=== PATIENT | male | born 1930 | race Caucasian/White ===

== ENCOUNTER 2017-08-05 12:18 | Inpatient (IN) | payer MEDICARE, OTHER ==
[2017-08-05] MEDS ORDERED: Sodium Chloride 0.9% 10 ML Syringe FLUSH PRN (12:43)
[2017-08-05] MEDS ORDERED: Sodium Chloride 0.9% 500 ML IV ONE (12:47)
[2017-08-05] MEDS ORDERED: Sodium Chloride 0.9% 1,000 ML IV SCH (13:00)
--- NOTE | 2017-08-05 13:00 | EDM.PDOC ---
ED HPI GENERAL MEDICAL PROBLEM - General Chief Complaint: General Stated Complaint: [facility] Time Seen by Provider: 08/05/17 12:20 Source of Information: Reports: Patient, EMS History Limitations: Reports: No Limitations - History of Present Illness INITIAL COMMENTS - FREE TEXT/NARRATIVE: 87-year-old male presents via [facility] for evaluation treatment of generalized weakness. Patient had a left inguinal hernia repair done yesterday at [facility] in [place]. He was discharged home yesterday. Reports that they live in [place], [place]. They're in route home. They stayed last night in [place]. After leaving the hospital yesterday he was able to ambulate with a walker. Today he has been unable to ambulate at all due to his weakness. No chest pain or shortness of breath. He did have some dry heaves last night but no vomiting. No dizziness, lightheadedness or syncope. Patient is a type II diabetic. Most recent blood sugar was 199 at home. Patient was given a 300 bolus by [facility]. 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 History of heart failure and diabetes. Patient is a DNR, DNI. Incisional Pain Score (Numeric/FACES): 10 - Related Data Allergies Allergy/AdvReac Type Severity Reaction Status Date / Time hay fever Allergy Cannot Uncoded 08/05/17 16:49 Remember Home Meds: Home Meds Acetaminophen/HYDROcodone [[place] 325-5 MG] 1 - 2 tab PO Q4HR PRN 08/05/17 [ History] Albuterol [Proventil Neb Soln] 2.5 mg NEB QID 08/05/17 [History] Aspirin 325 mg PO DAILY 08/05/17 [History] Docusate Sodium 100 mg PO BID 08/05/17 [History] Furosemide 40 mg PO DAILY 08/05/17 [History] Levothyroxine [Synthroid] 50 mcg PO DAILY 08/05/17 [History] Nystatin 1 dose TOP DAILY 08/05/17 [History] Simvastatin [Zocor] 20 mg PO BEDTIME 08/05/17 [History] Tamsulosin [Flomax] 0.8 mg PO DAILY 08/05/17 [History] glipiZIDE [Glipizide Xl] 2.5 mg PO DAILY 08/05/17 [History] metFORMIN [Glucophage XR] 500 mg PO BID 08/05/17 [History] Furosemide [Lasix] 20 mg PO DAILY 5 Days #5 tablet 08/07/17 [Rx] ED ROS GENERAL - Review of Systems Review Of Systems: See Below Constitutional: Reports: Weakness. Denies: Fever, Chills Respiratory: Denies: Shortness of Breath Cardiovascular: Denies: Chest Pain GI/Abdominal: Reports: Nausea (dry heaves). Denies: Abdominal Pain, Vomiting : Denies: Dysuria Skin: Reports: Wound (left inguinal hernia repair scar; no overlying erythema, minimal swelling, no obvious infection). Denies: Erythema Neurological: Denies: Syncope ED EXAM, GENERAL - Physical Exam Exam: See Below Exam Limited By: No Limitations General Appearance: Alert, WD/WN, No Apparent Distress Eye Exam: Bilateral Eye: Normal Inspection Ears: Normal External Exam Nose: Normal Inspection Throat/Mouth: Normal Inspection, Normal Voice, No Airway Compromise Neck: Normal Inspection Respiratory/Chest: No Respiratory Distress, Lungs Clear, Normal Breath Sounds Cardiovascular: Normal Peripheral Pulses, Regular Rate, Rhythm, No Murmur, Other (2+ pitting edema bilerally) GI/Abdominal: Normal Bowel Sounds, Soft, Tender (generalized). No: Distended ( left inguinal hernia repair scar; closed with dermabond, no swelling, erythema or pus to the area), Rebound Neurological: Alert, Oriented, Normal Cognition Psychiatric: Normal Affect, Normal Mood Skin Exam: Warm, Dry, Normal Color EKG INTERPRETATION EKG Date: 08/05/17 Time: 13:00 Rhythm: NSR Rate (Beats/Min): 109 [place]: Normal P-Wave: Present QRS: Normal ST-T: Normal QT: Prolonged EKG Interpretation Comments: Sinus tachycardia at 109 bpm. Decreased voltage in the limb leads. No signs of ischemia. Q waves in III, AVF - old inferior wall Mi. QT midely prolonged. T wace inversion in V5 and V6 and T wave flattending in I and AVL. Occassional PVC. Poor 'R" wave progression. Reviewed by myself and Dr. Neff . Course - Vital Signs Last Recorded V/S: Last Vital Signs Temp 36.8 C 08/07/17 19:50 Pulse 99 08/07/17 19:50 Resp 14 08/07/17 19:50 BP 132/73 08/07/17 19:50 Pulse Ox 94 L 08/07/17 19:50 - Orders/Labs/Meds Orders: Medication Orders Acetaminophen (Tylenol) 650 mg PO Q4H PRN PRN Reason: Pain (Mild 1-3)/fever Hydrocodone Bitart/Acetaminophen ([place] 325-5 Mg) 1 tab PO Q4H PRN PRN Reason: Pain (moderate 4-6) Hydrocodone Bitart/Acetaminophen ([place] 325-5 Mg) 2 tab PO Q4H PRN PRN Reason: Pain (moderate 4-6) Albuterol/Ipratropium (Duoneb 3.0-0.5 Mg/3 Ml) 3 ml NEB Q4H PRN PRN Reason: Shortness Of Breath/wheezing Aspirin (Ecotrin) 325 mg PO DAILY [facility] Last Admin: 08/07/17 10:26 Dose: 325 mg Admin: 08/06/17 09:49 Dose: 325 mg Docusate Sodium (Colace) 100 mg PO BID PRN PRN Reason: Constipation Last Admin: 08/06/17 22:10 Dose: 100 mg Enoxaparin Sodium (Lovenox) 40 mg SUBCUT DAILY [facility] Last Admin: 08/07/17 10:24 Dose: 40 mg Admin: 08/06/17 09:54 Dose: 40 mg Furosemide (Lasix) 40 mg PO DAILY [facility] Last Admin: 08/07/17 10:25 Dose: 40 mg Levothyroxine Sodium (Synthroid) 50 mcg PO DAILY [facility] Last Admin: 08/07/17 10:25 Dose: 50 mcg Admin: 08/06/17 09:52 Dose: 50 mcg Metformin HCl (Glucophage) 500 mg PO BID [facility] Last Admin: 08/07/17 20:05 Dose: 500 mg Admin: 08/07/17 10:26 Dose: 500 mg Admin: 08/06/17 21:03 Dose: 500 mg Admin: 08/06/17 09:49 Dose: 500 mg Admin: 08/05/17 20:41 Dose: 500 mg Nystatin (Nystop) 0 gm TOP DAILY [facility] Last Admin: 08/07/17 10:33 Dose: 1 dose Admin: 08/06/17 09:58 Dose: 1 dose Ondansetron HCl (Zofran Odt) 4 mg PO Q6H PRN PRN Reason: nausea, able to take PO Ondansetron HCl (Zofran) 4 mg IV Q6H PRN PRN Reason: Nausea/Vomiting Polyethylene Glycol (Miralax) 17 gm PO DAILY PRN PRN Reason: Constipation Last Admin: 08/06/17 09:53 Dose: 17 gm Simvastatin (Zocor) 20 mg PO BEDTIME [facility]AR[facility] Last Admin: 08/07/17 20:05 Dose: 20 mg Admin: 08/06/17 21:03 Dose: 20 mg Admin: 08/05/17 20:42 Dose: 20 mg Sodium Chloride (Saline Flush) 10 ml FLUSH ASDIRECTED PRN PRN Reason: Keep Vein Open Tamsulosin HCl (Flomax) 0.4 mg PO DAILY [facility] Last Admin: 08/07/17 10:26 Dose: 0.4 mg Admin: 08/06/17 09:52 Dose: 0.4 mg Temazepam (Restoril) 7.5 mg PO BEDTIME PRN PRN Reason: Sleep Labs: Laboratory Tests 08/05/17 08/05/17 08/05/17 Range/Units 12:55 12:58 12:58 WBC 11.75 H (4.23-9.07) K/mm3 RBC 4.95 (4.63-6.08) M/mm3 Hgb 14.5 (13.7-17.5) gm/L Hct 43.8 (40.1-51.0) % MCV 88.5 (79.0-92.2) fl MCH 29.3 (25.7-32.2) pg MCHC 33.1 (32.2-35.5) g/dl RDW Std Deviation 47.9 H (35.1-43.9) fL Plt Count 188 (163-337) K/mm3 MPV 10.4 (9.4-12.3) fl Neutrophils % (Manual) 77 H (40-60) % Band Neutrophils % 1 (0-10) % Lymphocytes % (Manual) 12 L (20-40) % Atypical Lymphs % 0 % Monocytes % (Manual) 9 (2-10) % Eosinophils % (Manual) 1 (0.8-7.0) % Basophils % (Manual) 0 L (0.2-1.2) Platelet Estimate Adequate RBC Morph Comment Not Reportable Sodium 140 (136-145) mEq/L Potassium 4.2 (3.5-5.1) mEq/L Chloride 104 (98-107) mEq/L Carbon Dioxide 26 (21-32) mEq/L Anion Gap 14.2 (5-15) BUN 35 H (7-18) mg/dL Creatinine 1.5 H (0.7-1.3) mg/dL Est Cr Clr Drug Dosing 35.56 mL/min Estimated GFR (MDRD) 44 (>60) mL/min BUN/Creatinine Ratio 23.3 H (14-18) Glucose 124 H (83-115) mg/dL Calcium 9.2 (8.5-10.1) mg/dL Total Bilirubin 1.2 H (0.2-1.0) mg/dL AST 21 (15-37) U/L ALT 24 (16-63) U/L Alkaline Phosphatase 74 (46-116) U/L CK-MB (CK-2) 1.7 (0-3.6) ng/ml Troponin I 0.271 H* (0.00-0.056) ng/mL NT-Pro-B Natriuret Pep 6837 H (0-450) pg/mL Total Protein 6.9 (6.4-8.2) g/dl Albumin 3.1 L (3.4-5.0) g/dl Globulin 3.8 gm/dL Albumin/Globulin Ratio 0.8 L (1-2) Lipase 79 (73-393) U/L Urine Color (Yellow) Urine Appearance (Clear) Urine pH (5.0-8.0) Ur Specific [place] (1.005-1.030) Urine Protein (Negative) Urine Glucose (UA) (Negative) Urine Ketones (Negative) Urine Occult Blood (Negative) Urine Nitrite (Negative) Urine Bilirubin (Negative) Urine Urobilinogen (0.2-1.0) Ur Leukocyte Esterase (Negative) Urine RBC (0-5) /hpf Urine WBC (0-5) /hpf Ur Epithelial Cells (0-5) /hpf Urine Bacteria (FEW) /hpf Hyaline Casts (0-5) /lpf Urine Mucus (FEW) /hpf 08/05/17 Range/Units 13:45 WBC (4.23-9.07) K/mm3 RBC (4.63-6.08) M/mm3 Hgb (13.7-17.5) gm/L Hct (40.1-51.0) % MCV (79.0-92.2) fl MCH (25.7-32.2) pg MCHC (32.2-35.5) g/dl RDW Std Deviation (35.1-43.9) fL Plt Count (163-337) K/mm3 MPV (9.4-12.3) fl Neutrophils % (Manual) (40-60) % Band Neutrophils % (0-10) % Lymphocytes % (Manual) (20-40) % Atypical Lymphs % % Monocytes % (Manual) (2-10) % Eosinophils % (Manual) (0.8-7.0) % Basophils % (Manual) (0.2-1.2) Platelet Estimate RBC Morph Comment Sodium (136-145) mEq/L Potassium (3.5-5.1) mEq/L Chloride (98-107) mEq/L Carbon Dioxide (21-32) mEq/L Anion Gap (5-15) BUN (7-18) mg/dL Creatinine (0.7-1.3) mg/dL Est Cr Clr Drug Dosing mL/min Estimated GFR (MDRD) (>60) mL/min BUN/Creatinine Ratio (14-18) Glucose (83-115) mg/dL Calcium (8.5-10.1) mg/dL Total Bilirubin (0.2-1.0) mg/dL AST (15-37) U/L ALT (16-63) U/L Alkaline Phosphatase (46-116) U/L CK-MB (CK-2) (0-3.6) ng/ml Troponin I (0.00-0.056) ng/mL NT-Pro-B Natriuret Pep (0-450) pg/mL Total Protein (6.4-8.2) g/dl Albumin (3.4-5.0) g/dl Globulin gm/dL Albumin/Globulin Ratio (1-2) Lipase (73-393) U/L Urine Color Yellow (Yellow) Urine Appearance Clear (Clear) Urine pH 5.5 (5.0-8.0) Ur Specific [place] 1.020 (1.005-1.030) Urine Protein 1+ H (Negative) Urine Glucose (UA) Negative (Negative) Urine Ketones Negative (Negative) Urine Occult Blood Negative (Negative) Urine Nitrite Negative (Negative) Urine Bilirubin Negative (Negative) Urine Urobilinogen 0.2 (0.2-1.0) Ur Leukocyte Esterase Negative (Negative) Urine RBC 0-5 (0-5) /hpf Urine WBC 0-5 (0-5) /hpf Ur Epithelial Cells 0-5 (0-5) /hpf Urine Bacteria Rare (FEW) /hpf Hyaline Casts 0-5 (0-5) /lpf Urine Mucus Not seen (FEW) /hpf Meds: Medications Generic Name Dose Route Start Last Admin Trade Name Freq PRN Reason Stop Dose Admin Acetaminophen 650 mg 08/05/17 16:37 Tylenol PO Q4H PRN Pain (Mild 1-3)/fever Hydrocodone Bitart/Acetaminophen 1 tab 08/05/17 16:37 [place] 325-5 Mg PO Q4H PRN Pain (moderate 4-6) Hydrocodone Bitart/Acetaminophen 2 tab 08/05/17 16:37 [place] 325-5 Mg PO Q4H PRN Pain (moderate 4-6) Albuterol/Ipratropium 3 ml 08/05/17 16:37 Duoneb 3.0-0.5 Mg/3 Ml NEB Q4H PRN Shortness Of Breath/wheezing Aspirin 325 mg 08/06/17 09:00 08/07/17 10:26 Ecotrin PO 325 mg DAILY [facility] Administration Docusate Sodium 100 mg 08/05/17 16:37 08/06/17 22:10 Colace PO 100 mg BID PRN Administration Constipation Enoxaparin Sodium 40 mg 08/06/17 09:00 08/07/17 10:24 Lovenox SUBCUT 40 mg DAILY [facility] Administration Furosemide 40 mg 08/07/17 09:00 08/07/17 10:25 Lasix PO 40 mg DAILY [facility] Administration Levothyroxine Sodium 50 mcg 08/06/17 09:00 08/07/17 10:25 Synthroid PO 50 mcg DAILY [facility] Administration Metformin HCl 500 mg 08/05/17 21:00 08/07/17 20:05 Glucophage PO 500 mg BID [facility] Administration Nystatin 0 gm 08/06/17 09:00 08/07/17 10:33 Nystop TOP 1 dose DAILY [facility] Administration Ondansetron HCl 4 mg 08/05/17 16:37 Zofran Odt PO Q6H PRN nausea, able to take PO Ondansetron HCl 4 mg 08/05/17 16:37 Zofran IV Q6H PRN Nausea/Vomiting Polyethylene Glycol 17 gm 08/05/17 16:37 08/06/17 09:53 Miralax PO 17 gm DAILY PRN Administration Constipation Simvastatin 20 mg 08/05/17 21:00 08/07/17 20:05 Zocor PO 20 mg BEDTIME [facility] Administration Sodium Chloride 10 ml 08/05/17 12:43 Saline Flush FLUSH ASDIRECTED PRN Keep Vein Open Tamsulosin HCl 0.4 mg 08/06/17 09:00 08/07/17 10:26 Flomax PO 0.4 mg DAILY [facility] Administration Temazepam 7.5 mg 08/05/17 16:37 Restoril PO BEDTIME PRN Sleep Discontinued Medications Generic Name Dose Route Start Last Admin Trade Name Freq PRN Reason Stop Dose Admin Aspirin 324 mg 08/05/17 14:00 08/05/17 15:23 Aspirin PO 08/05/17 14:01 324 mg ONETIME ONE Administration Enalapril Maleate 2.5 mg 08/05/17 21:00 08/06/17 21:04 Vasotec PO 2.5 mg BID [facility] Administration Enoxaparin Sodium 40 mg 08/05/17 14:00 08/05/17 15:23 Lovenox SUBCUT 08/05/17 14:01 40 mg ONETIME ONE Administration Enoxaparin Sodium Confirm 08/05/17 15:32 08/05/17 15:32 Lovenox Administered 08/05/17 15:33 Not Given Dose 40 mg .ROUTE .STK-MED ONE Furosemide 60 mg 08/05/17 14:00 08/05/17 15:00 Lasix IVPUSH 08/05/17 14:01 60 mg NOW ONE Administration Furosemide 40 mg 08/05/17 16:45 08/06/17 05:52 Lasix IVPUSH 40 mg Q12H [facility] Administration Sodium Chloride 500 mls @ 500 mls/hr 08/05/17 12:47 08/05/17 18:28 Normal Saline IV 08/05/17 13:46 Not Given ONETIME ONE Sodium Chloride 1,000 mls @ 100 mls/hr 08/05/17 13:00 Normal Saline IV ASDIRECTED [facility]ARIS Sodium Chloride 500 mls @ 999 mls/hr 08/06/17 11:08 08/06/17 11:22 Normal Saline IV 08/06/17 11:38 999 mls/hr .BOLUS ONE Administration Sodium Chloride 500 mls @ 999 mls/hr 08/06/17 19:43 08/06/17 21:06 Normal Saline IV 08/06/17 20:14 999 mls/hr ASDIRECTED DAMARIS Administration Magnesium Hydroxide 30 ml 08/07/17 11:00 08/07/17 11:27 Milk Of Magnesia PO 08/07/17 11:01 30 ml ONETIME ONE Administration Morphine Sulfate 2 mg 08/05/17 16:37 Morphine IVPUSH 08/06/17 16:40 Q2H PRN Pain (severe 7-10) - Radiology Interpretation Free Text/Narrative:: chest xray 1 view impression per Vrad: cardiomegaly. atelectasis vs. less likely infiltrate at the left lung base xray of the abdomen 1 view impression per VraD: hyperlucent left flank stripe. Clinical correlation to exclude acute pathology suggested. Should further evaluation be desired CT scanning would be of additional benefit. - Re-Assessments/Exams Free Text/Narrative Re-Assessment/Exam: 08/05/17 14:[address] Neff. Recommended giving lasix 60mg IV, lovenox 40 units subq and aspirin 325mg We are attempting to get records from outside facilities. Elevated trop concerning for NSTEMI. Other possibilities include trop leak or demand ischemia. Of note the patient had recent surgery, possibly was fluid overloaded causing an elevated trop. Difficult to determine given no records here. Patient and family were updated on labs, ekg and imaging. 08/05/17 16:00 I discussed the labs, ekg and imaging results with the patient and his family. I informed them of the elevated trop. Difficult to determine if he had a NSTEMI vs. trop leak. Offered transfer to [place] for cardiology consult and possibly angiogram. Patient reports he is a DNR/DNI and does not want to return to [place] for an angiogram. Patient and family have elevted to stay at our hospital for care. They were informed we are unable to preform an cardic angiogram. They agree to admission here for trending trops and for further services such as PT, OT. Case was discussed with Dr. Sauceda hospitalist carton stapler. He agrees to the admission. Will come and see the patient in the ER and plan on admission. Departure - Departure Time of Disposition: 16:05 Disposition: Admitted As Inpatient 64 Condition: Serious Clinical Impression: Elevated troponin, S/P hernia repair, Generalized weakness CHF exacerbation Qualifiers: Congestive heart failure type: unspecified congestive heart failure type Qualified Code(s): I50.9 - Heart failure, unspecified - Discharge Information
[2017-08-05] MEDS ORDERED: Furosemide 40 MG/4 ML VIAL IVPUSH ONE (14:00)
[2017-08-05] MEDS ORDERED: Enoxaparin 40 MG/0.4 ML Syringe SUBCUT ONE (14:00)
[2017-08-05] MEDS ORDERED: Aspirin 81 MG Tab.Chew PO ONE (14:00)
[2017-08-05] MEDS ORDERED: Enoxaparin 40 MG/0.4 ML Syringe ONE (15:32)
[2017-08-05] MEDS ORDERED: Ondansetron 4 MG/2 ML SDV IV PRN (16:37)
[2017-08-05] MEDS ORDERED: Docusate Sodium 100 MG Cap PO PRN (16:37)
[2017-08-05] MEDS ORDERED: Morphine 2 MG/ML Syringe IVPUSH PRN (16:37)
[2017-08-05] MEDS ORDERED: Acetaminophen 325 MG Tab PO PRN (16:37)
[2017-08-05] MEDS ORDERED: Polyethylene Glycol 3350 Powder 17 GM Packet PO PRN (16:37)
[2017-08-05] MEDS ORDERED: Albuterol/Ipratropium 3.0-0.5 MG/3 ML Neb Soln NEB PRN (16:37)
[2017-08-05] MEDS ORDERED: Acetaminophen/HYDROcodone 325-5 MG Tab PO PRN ×2 (16:37)
[2017-08-05] MEDS ORDERED: Ondansetron 4 MG Tab.DIS PO PRN (16:37)
[2017-08-05] MEDS ORDERED: Temazepam 7.5 MG Cap PO PRN (16:37)
--- NOTE | 2017-08-05 17:13 | PCM.HP ---
H&P History of Present Illness - General Date of Service: 08/05/17 Admit Problem/Dx: Admission Diagnosis/Problem Admission Diagnosis/Problem Heart failure Generalized weakness and malaise Source of Information: Family History Limitations: Reports: No Limitations - History of Present Illness Initial Comments - Free Text/Narative: Patient is an 87-year-old man with past medical history of diabetes mellitus type 2, hypertension, hyperlipidemia, hypothyroidism, benign prostatic hyperplasia, chronic congestive heart failure, who recently underwent a left inguinal hernia repair yesterday at [facility] in [place] and was discharged same day. He was brought into the emergency room this morning for evaluation of complaints of generalized weakness and malaise. Most of the history was obtained from the family at the bedside as patient was too weak to give any history. According to the family, patient was discharged immediately after surgery and drove all the way from [place] to [place] where they stopped for the night. He was said to have been restless, nauseous, and was unable to eat anything post surgery. They watched him overnight and when he was not getting better at this morning they decided to bring him to the emergency room for further evaluation and treatment. At the emergency room, laboratory investigations which were done revealed an elevated troponin level as well as an elevated BNP level. The emergency room provider discussed with the patient and family regarding the results and he indicated that he did not want any intervention regarding his heart as he is aware that he has heart failure. They insisted that they want to stay in this hospital and that they want patient to be strong enough so he can go home. His CODE STATUS is DNR/DNI. He denies any chest pain, shortness of breath, cough, fever or bleeding from the hernia repair site. He does complain of extreme weakness. He will be admitted for further evaluation and treatment. Incisional Pain Score (Numeric/FACES): 10 - Related Data Allergies/Adverse Reactions: Allergies Allergy/AdvReac Type Severity Reaction Status Date / Time hay fever Allergy Cannot Uncoded 08/05/17 16:49 Remember Home Medications: Home Meds Acetaminophen/HYDROcodone [Penryn 325-5 MG] 1 tab PO Q4HR PRN 08/05/17 [History] Albuterol [Proventil Neb Soln] 1 inh NEB QID 08/05/17 [History] Aspirin 325 mg PO DAILY 08/05/17 [History] Docusate Sodium 100 mg PO BID 08/05/17 [History] Furosemide [Furosemide] 40 mg PO DAILY 08/05/17 [History] Levothyroxine [Synthroid] 50 mcg PO DAILY 08/05/17 [History] Nystatin 1 dose TOP DAILY 08/05/17 [History] Simvastatin [Zocor] 20 mg PO BEDTIME 08/05/17 [History] Tamsulosin [Flomax] 0.4 mg PO DAILY 08/05/17 [History] glipiZIDE [Glipizide Xl] 2.5 mg PO DAILY 08/05/17 [History] metFORMIN [Glucophage XR] 500 mg PO BID 08/05/17 [History] Past Medical History Cardiovascular History: Reports: Heart Failure, High Cholesterol, Hypertension Genitourinary History: Reports: Prostate Disorder Other Genitourinary History: bladder control Endocrine/Metabolic History: Reports: Diabetes, Type II - Past Surgical History GI Surgical History: Reports: Hernia, Abdominal Social & Family History - Tobacco Use Smoking Status *Q: Former Smoker Used Tobacco, but Quit: Yes Month Tobacco Last Used: see above - Caffeine Use Caffeine Use: Reports: Coffee - Recreational Drug Use Recreational Drug Use: No H&P Review of Systems - Review of Systems: Review Of Systems: See Below General: Reports: Malaise, Weakness, Decreased Appetite HEENT: Reports: No Symptoms Pulmonary: Reports: No Symptoms Cardiovascular: Reports: Dyspnea on Exertion, Orthopnea Gastrointestinal: Reports: No Symptoms Genitourinary: Reports: No Symptoms Musculoskeletal: Reports: No Symptoms Skin: Reports: No Symptoms Psychiatric: Reports: No Symptoms Neurological: Reports: No Symptoms Hematologic/Lymphatic: Reports: No Symptoms Immunologic: Reports: No Symptoms Exam - Exam Exam: See Below - Vital Signs Vital Signs: Last Vital Signs Temp 99.3 F 08/05/17 16:40 Pulse 103 H 08/05/17 16:40 Resp 14 08/05/17 16:40 BP 135/97 H 08/05/17 16:40 Pulse Ox 93 L 08/05/17 16:40 Weight: 84.005 kg - Exam Quality Assessment: Supplemental Oxygen General: Alert, Oriented, Cooperative HEENT: PERRLA, Hearing Intact, Mucosa Moist & [place], Nares Patent, Normal Nasal Septum, Posterior Pharynx Clear, Conjunctiva Clear, EOMI, EACs Clear, TMs Clear Neck: Supple, Trachea Midline, 2 Lungs: Clear to Auscultation, Normal Respiratory Effort, Rales Cardiovascular: Regular Rate, Regular Rhythm GI/Abdominal Exam: Normal Bowel Sounds, Soft, Non-Tender, No Organomegaly, No Distention, No Abnormal Bruit, No Mass, Pelvis Stable (Male) Exam: Other (Hernia repair site noted to have clean dressing.) Rectal (Males) Exam: Deferred Back Exam: Normal Inspection Extremities: Normal Inspection, Normal Range of Motion, Non-Tender, No Pedal Edema, Normal Capillary Refill Peripheral Pulses: 2+: Carotid (L), Carotid (R), Brachial (L), Brachial (R), Radial (L), Radial (R), Femoral (L), Femoral (R), Popliteal (L), Popliteal (R), Posterior Tibial (L), Posterior Tibial (R), Dorsalis Pedis (L), Dorsalis Pedis ( R) Skin: Warm, Dry, Intact Neurological: Cranial Nerves Intact, Reflexes Equal Bilateral Neuro Extensive - Mental Status: Alert, Oriented x3, Normal Mood/Affect, Normal Cognition Neuro Extensive - Motor, Sensory, Reflexes: CN II-XII Intact DTR: 2+: Bicep (L), Bicep (R), Tricep (L), Tricep (R), Patella (L), Patella (R) , Achilles (L), Achilles (R) Psychiatric: Alert, Normal Affect, Normal Mood - Patient Data Result Diagrams: 08/05/17 12:55 08/05/17 12:58 *Q Meaningful Use (ADM) - VTE *Q VTE Criteria *Q: - Stroke *Q Stroke Criteria *Q: - AMI *Q AMI Criteria *Q: - Problem List (1) CHF exacerbation SNOMED Code(s): 80424286 ICD Code: I50.9 - HEART FAILURE, UNSPECIFIED Status: Acute Priority: High Current Visit: Yes Qualifiers: Congestive heart failure type: unspecified congestive heart failure type Qualified Code(s): I50.9 - Heart failure, unspecified (2) Elevated troponin SNOMED Code(s): 295371050 ICD Code: R74.8 - ABNORMAL LEVELS OF OTHER SERUM ENZYMES Status: Acute Priority: High Current Visit: Yes (3) Generalized weakness SNOMED Code(s): 51897897 ICD Code: R53.1 - WEAKNESS Status: Acute Priority: High Current Visit: Yes (4) S/P hernia repair SNOMED Code(s): 28208876736293 ICD Code: Z98.890 - OTHER SPECIFIED POSTPROCEDURAL STATES; Z87.19 - PERSONAL HISTORY OF OTHER DISEASES OF THE DIGESTIVE SYSTEM Status: Acute Current Visit: Yes Problem Details: Postop day #1 (5) DM2 (diabetes mellitus, type 2) SNOMED Code(s): 89077615 ICD Code: E11.9 - TYPE 2 DIABETES MELLITUS WITHOUT COMPLICATIONS Status: Chronic Current Visit: Yes Qualifiers: Diabetes mellitus complication status: with unspecified complications Diabetes mellitus intermission coordinator insulin use: without intermission coordinator use Qualified Code( s): E11.8 - Type 2 diabetes mellitus with unspecified complications (6) Hypothyroidism SNOMED Code(s): 29025279 ICD Code: E03.9 - HYPOTHYROIDISM, UNSPECIFIED Status: Chronic Current Visit: Yes Qualifiers: Hypothyroidism type: acquired Qualified Code(s): E03.9 - Hypothyroidism, unspecified (7) BPH (benign prostatic hyperplasia) SNOMED Code(s): 246557839 ICD Code: N40.0 - BENIGN PROSTATIC HYPERPLASIA WITHOUT LOWER URINRY TRACT SYMP Status: Chronic Current Visit: Yes Qualifiers: Lower urinary tract symptom presence: unspecified whether lower urinary tract symptoms present Qualified Code(s): N40.0 - Benign prostatic hyperplasia without lower urinary tract symptoms Problem List Initiated/Reviewed/Updated: Yes Orders Last 24hrs: Active Orders 24 hr Category Date Time Status Patient Status [ADT] Routine ADT 08/05/17 16:05 Active Antiembolic Devices [RC] PER UNIT ROUTINE Care 08/05/17 16:42 Ordered Blood Glucose Check, Bedside [RC] QIDACANDBED Care 08/05/17 16:37 Ordered Cardiac Education [RC] Click to Edit Care 08/05/17 16:46 Ordered EKG Documentation Completion [RC] ROUTINE Care 08/05/17 16:37 Ordered Oxygen Therapy [RC] PRN Care 08/05/17 16:37 Ordered RT Aerosol Therapy [RC] ASDIRECTED Care 08/05/17 16:42 Ordered Up With Assistance [RC] ASDIRECTED Care 08/05/17 16:37 Ordered VTE/DVT Education [RC] PER UNIT ROUTINE Care 08/05/17 16:37 Ordered Vital Signs [RC] Q4H Care 08/05/17 16:37 Ordered OT Evaluation and Treatment [CONS] Routine Cons 08/05/17 16:37 Ordered PT Evaluation and Treatment [CONS] Routine Cons 08/05/17 16:37 Ordered Consistent Carbohydrate Diet [DIET] Diet 08/05/17 Dinner Ordered Echo Comp wo Cont [US] Routine Exams 08/07/17 08:00 Ordered BASIC METABOLIC PANEL,BMP [CHEM] AM Lab 08/06/17 05:11 Ordered CBC WITH AUTO DIFF [HEME] AM Lab 08/06/17 05:11 Ordered PRO B-TYPE NATRIUR PEPT,BNPPRO [CHEM] Routine Lab 08/06/17 05:11 Ordered TROPONIN I [CHEM] Q12H Lab 08/05/17 16:37 Ordered TROPONIN I [CHEM] Q12H Lab 08/06/17 04:37 Ordered TROPONIN I [CHEM] Q12H Lab 08/06/17 16:37 Ordered Acetaminophen [Tylenol] Med 08/05/17 16:37 Ordered 650 mg PO Q4H PRN Acetaminophen/HYDROcodone [Penryn 325-5 MG] Med 08/05/17 16:37 Ordered 1 tab PO Q4H PRN Acetaminophen/HYDROcodone [Penryn 325-5 MG] Med 08/05/17 16:37 Ordered 2 tab PO Q4H PRN Albuterol/Ipratropium [DuoNeb 3.0-0.5 MG/3 ML] Med 08/05/17 16:37 Ordered 3 ml NEB Q4H PRN Aspirin Med 08/06/17 09:00 Ordered 325 mg PO DAILY Docusate Sodium [Colace] Med 08/05/17 16:37 Ordered 100 mg PO BID PRN Enalapril [Vasotec] Med 08/05/17 21:00 Ordered 2.5 mg PO BID Enoxaparin [Lovenox] Med 08/06/17 09:00 Ordered 40 mg SUBCUT DAILY Furosemide [Lasix] Med 08/05/17 16:45 Ordered 40 mg IVPUSH Q12H Levothyroxine [Synthroid] Med 08/06/17 09:00 Ordered 50 mcg PO DAILY Morphine Med 08/05/17 16:37 Ordered 2 mg IVPUSH Q2H PRN Nystatin [Nystatin] Med 08/06/17 09:00 Ordered 1 dose TOP DAILY Ondansetron [Zofran ODT] Med 08/05/17 16:37 Ordered 4 mg PO Q6H PRN Ondansetron [Zofran] Med 08/05/17 16:37 Ordered 4 mg IV Q6H PRN Polyethylene Glycol 3350 [MiraLAX] Med 08/05/17 16:37 Ordered 17 gm PO DAILY PRN Simvastatin [Zocor] Med 08/05/17 21:00 Ordered 20 mg PO BEDTIME Tamsulosin [Flomax] Med 08/06/17 09:00 Ordered 0.4 mg PO DAILY Temazepam [Restoril] Med 08/05/17 16:37 Ordered 7.5 mg PO BEDTIME PRN metFORMIN Med 08/05/17 21:00 Ordered 500 mg PO BID Antiembolic Hose [OM.PC] Per Unit Routine Oth 08/05/17 16:39 Ordered CHF Questionnaire [COMM] Routine Oth 08/05/17 16:46 Ordered Resuscitation Status Routine Resus Stat 08/05/17 16:37 Ordered Medication Orders Acetaminophen (Tylenol) 650 mg PO Q4H PRN PRN Reason: Pain (Mild 1-3)/fever Hydrocodone Bitart/Acetaminophen (Penryn 325-5 Mg) 1 tab PO Q4H PRN PRN Reason: Pain (moderate 4-6) Hydrocodone Bitart/Acetaminophen (Penryn 325-5 Mg) 2 tab PO Q4H PRN PRN Reason: Pain (moderate 4-6) Albuterol/Ipratropium (Duoneb 3.0-0.5 Mg/3 Ml) 3 ml NEB Q4H PRN PRN Reason: Shortness Of Breath/wheezing Docusate Sodium (Colace) 100 mg PO BID PRN PRN Reason: Constipation Enalapril Maleate (Vasotec) 2.5 mg PO BID [facility] Enoxaparin Sodium (Lovenox) 40 mg SUBCUT DAILY [facility] Furosemide (Lasix) 40 mg IVPUSH Q12H [facility] Levothyroxine Sodium (Synthroid) 50 mcg PO DAILY [facility] Morphine Sulfate (Morphine) 2 mg IVPUSH Q2H PRN PRN Reason: Pain (severe 7-10) Stop: 08/06/17 16:40 Non-Formulary Medication (Aspirin) 325 mg PO DAILY [facility] Non-Formulary Medication (Metformin) 500 mg PO BID [facility] Non-Formulary Medication (Nystatin [Nystatin]) 1 dose TOP DAILY [facility] Ondansetron HCl (Zofran Odt) 4 mg PO Q6H PRN PRN Reason: nausea, able to take PO Ondansetron HCl (Zofran) 4 mg IV Q6H PRN PRN Reason: Nausea/Vomiting Polyethylene Glycol (Miralax) 17 gm PO DAILY PRN PRN Reason: Constipation Simvastatin (Zocor) 20 mg PO BEDTIME [facility] Sodium Chloride (Saline Flush) 10 ml FLUSH ASDIRECTED PRN PRN Reason: Keep Vein Open Tamsulosin HCl (Flomax) 0.4 mg PO DAILY [facility] Temazepam (Restoril) 7.5 mg PO BEDTIME PRN PRN Reason: Sleep Assessment/Plan Comment:: Assessment: 1. Status post left inguinal hernia repair. Postop Day #1. 2. Generalized weakness and malaise. 3. Elevated troponin possibly due to non-ST elevation [place]. 4. Acute exacerbation of chronic congestive heart failure. 5. Acute physical deconditioning. Plan: 1. Admit to [facility] for observation under telemetry monitoring. 2. Monitor serial troponin and EKG every 12 hours. 3. Complete echocardiogram on Monday. 4. Continue aspirin, statin. Will start CARLOZ inhibitor with enalapril 2.5 mg twice daily to hold for systolic blood pressure less than 100 mmHg. 5. IV Lasix 40 mg twice daily. 6. Physical therapy and outpatient therapy evaluation and treatment. 7. DVT prophylaxis with Lovenox. 8. Discharge planning.
[2017-08-05] MEDS: Furosemide 100 MG/10 ML SDV IVPUSH SCH (17:40)
[2017-08-05] MEDS: metFORMIN 500 MG Tab PO SCH (20:41)
[2017-08-05] MEDS: Simvastatin 20 MG Tab PO SCH (20:42)
[2017-08-06] MEDS: Furosemide 100 MG/10 ML SDV IVPUSH SCH (05:52)
[2017-08-06] MEDS: Aspirin 325 MG Tab.EC PO SCH (09:49)
[2017-08-06] MEDS: metFORMIN 500 MG Tab PO SCH ×2 (09:49→21:03)
[2017-08-06] MEDS: Levothyroxine 50 MCG Tab PO SCH (09:52)
[2017-08-06] MEDS: Tamsulosin 0.4 MG Cap.ER PO SCH (09:52)
[2017-08-06] MEDS: Enoxaparin 40 MG/0.4 ML Syringe SUBCUT SCH (09:54)
--- NOTE | 2017-08-06 09:54 | PCM.PN ---
- General Info Date of Service: 08/06/17 Admission Dx/Problem (Free Text): Admission Diagnosis/Problem Admission Diagnosis/Problem Heart failure Generalized weakness and malaise Subjective Update: 87-year-old man who underwent a left inguinal hernia repair postop day #2. He was seen and examined bedside with the nurse. Still complains of generalized weakness but denies any pain. He was started on Lasix as his proBNP was elevated. He has been diuresing well what vitals have been unstable. Functional Status: Reports: Pain Controlled, Tolerating Diet, Urinating. Denies : New Symptoms - Review of Systems General: Reports: Weakness HEENT: Reports: No Symptoms Pulmonary: Reports: No Symptoms Cardiovascular: Reports: No Symptoms Gastrointestinal: Reports: No Symptoms Genitourinary: Reports: No Symptoms Musculoskeletal: Reports: No Symptoms Skin: Reports: No Symptoms Neurological: Reports: No Symptoms Psychiatric: Reports: No Symptoms - Patient Data Vitals - Most Recent: Last Vital Signs Temp 98.2 F 08/06/17 04:21 Pulse 105 H 08/06/17 04:21 Resp 20 08/06/17 04:21 BP 120/64 08/06/17 04:21 Pulse Ox 92 L 08/06/17 04:21 Weight - Most Recent: 83.143 kg I&O - Last 24 Hours: Intake & Output 08/05/17 08/06/17 08/06/17 22:59 06:59 14:59 Intake Total 120 200 Output Total 200 Balance 120 0 Lab Results Last 24 Hours: Laboratory Results - last 24 hr 08/05/17 08/05/17 08/05/17 Range/Units 16:37 17:39 20:59 WBC (4.23-9.07) K/mm3 RBC (4.63-6.08) M/mm3 Hgb (13.7-17.5) gm/L Hct (40.1-51.0) % MCV (79.0-92.2) fl MCH (25.7-32.2) pg MCHC (32.2-35.5) g/dl RDW Std Deviation (35.1-43.9) fL Plt Count (163-337) K/mm3 MPV (9.4-12.3) fl Neut % (Auto) (34.0-67.9) % Lymph % (Auto) (21.8-53.1) % Pratt % (Auto) (5.3-12.2) % Eos % (Auto) (0.8-7.0) Baso % (Auto) (0.1-1.2) % Neut # (Auto) (1.78-5.38) K/mm3 Lymph # (Auto) (1.32-3.57) K/mm3 Pratt # (Auto) (0.30-0.82) K/mm3 Eos # (Auto) (0.04-0.54) K/mm3 Baso # (Auto) (0.01-0.08) K/mm3 Manual Slide Review Sodium (136-145) mEq/L Potassium (3.5-5.1) mEq/L Chloride (98-107) mEq/L Carbon Dioxide (21-32) mEq/L Anion Gap (5-15) BUN (7-18) mg/dL Creatinine (0.7-1.3) mg/dL Est Cr Clr Drug Dosing mL/min Estimated GFR (MDRD) (>60) mL/min BUN/Creatinine Ratio (14-18) Glucose (83-115) mg/dL POC Glucose 111 H 145 H (83-110) mg/dL Calcium (8.5-10.1) mg/dL Troponin I 0.229 H* (0.00-0.056) ng/mL NT-Pro-B Natriuret Pep (0-450) pg/mL 08/06/17 08/06/17 08/06/17 Range/Units 04:35 04:35 04:35 WBC 12.73 H (4.23-9.07) K/mm3 RBC 5.12 (4.63-6.08) M/mm3 Hgb 15.0 (13.7-17.5) gm/L Hct 44.9 (40.1-51.0) % MCV 87.7 (79.0-92.2) fl MCH 29.3 (25.7-32.2) pg MCHC 33.4 (32.2-35.5) g/dl RDW Std Deviation 47.2 H (35.1-43.9) fL Plt Count 199 (163-337) K/mm3 MPV 10.7 (9.4-12.3) fl Neut % (Auto) 82.1 H (34.0-67.9) % Lymph % (Auto) 9.7 L (21.8-53.1) % Pratt % (Auto) 7.4 (5.3-12.2) % Eos % (Auto) 0.4 L (0.8-7.0) Baso % (Auto) 0.2 (0.1-1.2) % Neut # (Auto) 10.44 H (1.78-5.38) K/mm3 Lymph # (Auto) 1.24 L (1.32-3.57) K/mm3 Pratt # (Auto) 0.94 H (0.30-0.82) K/mm3 Eos # (Auto) 0.05 (0.04-0.54) K/mm3 Baso # (Auto) 0.03 (0.01-0.08) K/mm3 Manual Slide Review Normal smear Sodium 138 (136-145) mEq/L Potassium 3.9 (3.5-5.1) mEq/L Chloride 102 (98-107) mEq/L Carbon Dioxide 29 (21-32) mEq/L Anion Gap 10.9 (5-15) BUN 40 H (7-18) mg/dL Creatinine 1.6 H (0.7-1.3) mg/dL Est Cr Clr Drug Dosing 33.34 mL/min Estimated GFR (MDRD) 41 (>60) mL/min BUN/Creatinine Ratio 25.0 H (14-18) Glucose 159 H (83-115) mg/dL POC Glucose (83-110) mg/dL Calcium 9.4 (8.5-10.1) mg/dL Troponin I 0.141 H* (0.00-0.056) ng/mL NT-Pro-B Natriuret Pep 3283 H (0-450) pg/mL 08/06/17 Range/Units 06:12 WBC (4.23-9.07) K/mm3 RBC (4.63-6.08) M/mm3 Hgb (13.7-17.5) gm/L Hct (40.1-51.0) % MCV (79.0-92.2) fl MCH (25.7-32.2) pg MCHC (32.2-35.5) g/dl RDW Std Deviation (35.1-43.9) fL Plt Count (163-337) K/mm3 MPV (9.4-12.3) fl Neut % (Auto) (34.0-67.9) % Lymph % (Auto) (21.8-53.1) % Pratt % (Auto) (5.3-12.2) % Eos % (Auto) (0.8-7.0) Baso % (Auto) (0.1-1.2) % Neut # (Auto) (1.78-5.38) K/mm3 Lymph # (Auto) (1.32-3.57) K/mm3 Pratt # (Auto) (0.30-0.82) K/mm3 Eos # (Auto) (0.04-0.54) K/mm3 Baso # (Auto) (0.01-0.08) K/mm3 Manual Slide Review Sodium (136-145) mEq/L Potassium (3.5-5.1) mEq/L Chloride (98-107) mEq/L Carbon Dioxide (21-32) mEq/L Anion Gap (5-15) BUN (7-18) mg/dL Creatinine (0.7-1.3) mg/dL Est Cr Clr Drug Dosing mL/min Estimated GFR (MDRD) (>60) mL/min BUN/Creatinine Ratio (14-18) Glucose (83-115) mg/dL POC Glucose 133 H (83-110) mg/dL Calcium (8.5-10.1) mg/dL Troponin I (0.00-0.056) ng/mL NT-Pro-B Natriuret Pep (0-450) pg/mL Med Orders - Current: Current Medications Acetaminophen (Tylenol) 650 mg PO Q4H PRN PRN Reason: Pain (Mild 1-3)/fever Hydrocodone Bitart/Acetaminophen ([place] 325-5 Mg) 1 tab PO Q4H PRN PRN Reason: Pain (moderate 4-6) Hydrocodone Bitart/Acetaminophen ([place] 325-5 Mg) 2 tab PO Q4H PRN PRN Reason: Pain (moderate 4-6) Albuterol/Ipratropium (Duoneb 3.0-0.5 Mg/3 Ml) 3 ml NEB Q4H PRN PRN Reason: Shortness Of Breath/wheezing Aspirin (Ecotrin) 325 mg PO DAILY [facility] Docusate Sodium (Colace) 100 mg PO BID PRN PRN Reason: Constipation Enalapril Maleate (Vasotec) 2.5 mg PO BID [facility] Last Admin: 08/05/17 20:42 Dose: 2.5 mg Enoxaparin Sodium (Lovenox) 40 mg SUBCUT DAILY [facility] Furosemide (Lasix) 40 mg IVPUSH Q12H [facility] Last Admin: 08/06/17 05:52 Dose: 40 mg Levothyroxine Sodium (Synthroid) 50 mcg PO DAILY [facility] Metformin HCl (Glucophage) 500 mg PO BID [facility] Last Admin: 08/05/17 20:41 Dose: 500 mg Morphine Sulfate (Morphine) 2 mg IVPUSH Q2H PRN PRN Reason: Pain (severe 7-10) Stop: 08/06/17 16:40 Nystatin (Nystop) 0 gm TOP DAILY [facility] Ondansetron HCl (Zofran Odt) 4 mg PO Q6H PRN PRN Reason: nausea, able to take PO Ondansetron HCl (Zofran) 4 mg IV Q6H PRN PRN Reason: Nausea/Vomiting Polyethylene Glycol (Miralax) 17 gm PO DAILY PRN PRN Reason: Constipation Simvastatin (Zocor) 20 mg PO BEDTIME [facility] Last Admin: 08/05/17 20:42 Dose: 20 mg Sodium Chloride (Saline Flush) 10 ml FLUSH ASDIRECTED PRN PRN Reason: Keep Vein Open Tamsulosin HCl (Flomax) 0.4 mg PO DAILY [facility] Temazepam (Restoril) 7.5 mg PO BEDTIME PRN PRN Reason: Sleep Discontinued Medications Aspirin (Aspirin) 324 mg PO ONETIME ONE Stop: 08/05/17 14:01 Last Admin: 08/05/17 15:23 Dose: 324 mg Enoxaparin Sodium (Lovenox) 40 mg SUBCUT ONETIME ONE Stop: 08/05/17 14:01 Last Admin: 08/05/17 15:23 Dose: 40 mg Enoxaparin Sodium (Lovenox) Confirm Administered Dose 40 mg .ROUTE .STK-MED ONE Stop: 08/05/17 15:33 Last Admin: 08/05/17 15:32 Dose: Not Given Furosemide (Lasix) 60 mg IVPUSH NOW ONE Stop: 08/05/17 14:01 Last Admin: 08/05/17 15:00 Dose: 60 mg Sodium Chloride (Normal Saline) 500 mls @ 500 mls/hr IV ONETIME ONE Stop: 08/05/17 13:46 Last Admin: 08/05/17 18:28 Dose: Not Given Sodium Chloride (Normal Saline) 1,000 mls @ 100 mls/hr IV ASDIRECTED DAMARIS - Exam General: Alert, Oriented, Cooperative, Lethargic HEENT: Pupils Equal, Pupils Reactive, EOMI, Mucous Membr. Moist/[place] Neck: Supple Lungs: Clear to Auscultation, Normal Respiratory Effort Cardiovascular: Regular Rate, Regular Rhythm GI/Abdominal Exam: Normal Bowel Sounds, Soft, Non-Tender, No Organomegaly, No Distention, No Abnormal Bruit, No Mass, Pelvis Stable (Male) Exam: Deferred Back Exam: Normal Inspection Extremities: Normal Inspection, Normal Range of Motion, Non-Tender, No Pedal Edema, Normal Capillary Refill Peripheral Pulses: 2+: Carotid (L), Carotid (R), Brachial (L), Brachial (R), Radial (L), Radial (R), Femoral (L), Femoral (R), Popliteal (L), Popliteal (R), Posterior Tibial (L), Posterior Tibial (R), Dorsalis Pedis (L), Dorsalis Pedis ( R) Skin: Warm, Dry, Intact Wound/Incisions: Healing Well Neurological: No New Focal Deficit Psy/Mental Status: Alert, Normal Affect, Normal Mood - Problem List & Annotations (1) CHF exacerbation SNOMED Code(s): 82805564 Code(s): I50.9 - HEART FAILURE, UNSPECIFIED Status: Acute Priority: High Current Visit: Yes Qualifiers: Congestive heart failure type: unspecified congestive heart failure type Qualified Code(s): I50.9 - Heart failure, unspecified (2) Elevated troponin SNOMED Code(s): 086548795 Code(s): R74.8 - ABNORMAL LEVELS OF OTHER SERUM ENZYMES Status: Acute Priority: High Current Visit: Yes (3) Generalized weakness SNOMED Code(s): 77085750 Code(s): R53.1 - WEAKNESS Status: Acute Priority: High Current Visit: Yes (4) S/P hernia repair SNOMED Code(s): 57006604829646 Code(s): Z98.890 - OTHER SPECIFIED POSTPROCEDURAL STATES; Z87.19 - PERSONAL HISTORY OF OTHER DISEASES OF THE DIGESTIVE SYSTEM Status: Acute Current Visit: Yes Annotation/Comment:: Postop day #1 (5) DM2 (diabetes mellitus, type 2) SNOMED Code(s): 00250938 Code(s): E11.9 - TYPE 2 DIABETES MELLITUS WITHOUT COMPLICATIONS Status: Chronic Current Visit: Yes Qualifiers: Diabetes mellitus complication status: with unspecified complications Diabetes mellitus residential insulin use: without field assessor use Qualified Code( s): E11.8 - Type 2 diabetes mellitus with unspecified complications (6) Hypothyroidism SNOMED Code(s): 63489170 Code(s): E03.9 - HYPOTHYROIDISM, UNSPECIFIED Status: Chronic Current Visit: Yes Qualifiers: Hypothyroidism type: acquired Qualified Code(s): E03.9 - Hypothyroidism, unspecified (7) BPH (benign prostatic hyperplasia) SNOMED Code(s): 789427475 Code(s): N40.0 - BENIGN PROSTATIC HYPERPLASIA WITHOUT LOWER URINRY TRACT SYMP Status: Chronic Current Visit: Yes Qualifiers: Lower urinary tract symptom presence: unspecified whether lower urinary tract symptoms present Qualified Code(s): N40.0 - Benign prostatic hyperplasia without lower urinary tract symptoms - Problem List Review Problem List Initiated/Reviewed/Updated: Yes - My Orders Last 24 Hours: My Active Orders 08/05/17 16:37 Blood Glucose Check, Bedside [RC] QIDACANDBED Oxygen Therapy [RC] PRN Up With Assistance [RC] ASDIRECTED VTE/DVT Education [RC] QSHIFT Vital Signs [RC] Q4HR OT Evaluation and Treatment [CONS] Routine PT Evaluation and Treatment [CONS] Routine Acetaminophen [Tylenol] 650 mg PO Q4H PRN Acetaminophen/HYDROcodone [[place] 325-5 MG] 1 tab PO Q4H PRN Acetaminophen/HYDROcodone [[place] 325-5 MG] 2 tab PO Q4H PRN Albuterol/Ipratropium [DuoNeb 3.0-0.5 MG/3 ML] 3 ml NEB Q4H PRN Docusate Sodium [Colace] 100 mg PO BID PRN Morphine 2 mg IVPUSH Q2H PRN Ondansetron [Zofran ODT] 4 mg PO Q6H PRN Ondansetron [Zofran] 4 mg IV Q6H PRN Polyethylene Glycol 3350 [MiraLAX] 17 gm PO DAILY PRN Temazepam [Restoril] 7.5 mg PO BEDTIME PRN Resuscitation Status Routine 08/05/17 16:39 Antiembolic Hose [OM.PC] Per Unit Routine 08/05/17 16:42 Antiembolic Devices [RC] QSHIFT RT Aerosol Therapy [RC] ASDIRECTED 08/05/17 16:45 Furosemide [Lasix] 40 mg IVPUSH Q12H 08/05/17 16:46 Cardiac Education [RC] Click to Edit CHF Questionnaire [COMM] Routine 08/05/17 21:00 Enalapril [Vasotec] 2.5 mg PO BID Simvastatin [Zocor] 20 mg PO BEDTIME metFORMIN [Glucophage] 500 mg PO BID 08/05/17 Dinner Consistent Carbohydrate Diet [DIET] 08/06/17 09:00 Aspirin [Ecotrin] 325 mg PO DAILY Enoxaparin [Lovenox] 40 mg SUBCUT DAILY Levothyroxine [Synthroid] 50 mcg PO DAILY Nystatin [Nystop] 0 gm TOP DAILY Tamsulosin [Flomax] 0.4 mg PO DAILY 08/06/17 16:37 TROPONIN I [CHEM] Q12H 08/07/17 08:00 Echo Comp wo Cont [US] Routine - Assessment Assessment:: 1. Status post left inguinal hernia repair. Postop Day #2. 2. Generalized weakness and malaise. 3. Elevated troponin possibly due to non-ST elevation [place]. 4. Acute exacerbation of chronic congestive heart failure. 5. Acute physical deconditioning. - Plan Plan:: 1. Continue Med/Surg management on telemetry monitoring. 2. Complete echocardiogram on Monday. 3. Continue aspirin, statin. Will discontinue CARLOZ inhibitor because of hypotension. We'll give a bolus of 500 mL of 0.9% normal saline. 4. IV Lasix 40 mg daily. 5. Physical therapy and outpatient therapy evaluation and recommendations noted and appreciated. 6. DVT prophylaxis with Lovenox. 7. Discharge planning.
[2017-08-06] MEDS: Nystatin Topical Powder 15 GM Bottle TOP SCH (09:58)
[2017-08-06] MEDS ORDERED: Sodium Chloride 0.9% 500 ML IV ONE (11:08)
[2017-08-06] MEDS ORDERED: Sodium Chloride 0.9% 500 ML IV SCH (19:43)
[2017-08-06] MEDS: Simvastatin 20 MG Tab PO SCH (21:03)
[2017-08-07] MEDS: Enoxaparin 40 MG/0.4 ML Syringe SUBCUT SCH (10:24)
[2017-08-07] MEDS: Levothyroxine 50 MCG Tab PO SCH (10:25)
[2017-08-07] MEDS: Furosemide 40 MG Tab PO SCH (10:25)
--- NOTE | 2017-08-07 10:25 | CR ---
Abdomen: Supine view of the abdomen was obtained. Comparison: No previous study. Mild vascular calcification is seen. Other calcifications within the pelvis are compatible with phleboliths. Bowel gas pattern is normal. Slight degenerative spurring is noted within the spine. Lucency is seen along the flank stripe believed to be incidental. Impression: 1. Incidental findings. Nothing acute is seen on supine abdominal x-ray. Diagnostic code #2 I agree with preliminary report issued by [facility] ([facility] preliminary report dictated on 08/05/17, 4:48 PM Central Time)
--- NOTE | 2017-08-07 10:25 | CR ---
Chest: AP view of the chest was obtained. Comparison: No prior chest x-ray. Heart size and mediastinum are within normal limits for AP technique. Mild left basilar atelectasis is seen. Lungs otherwise are clear. Bony structures are grossly intact. Impression: 1. Left basilar atelectasis. 2. AP chest x-ray is otherwise within normal limits. Diagnostic code #2 I agree with preliminary report issued by [facility] ([facility] preliminary report dictated on 08/05/17, 4:45 PM Central Time)
[2017-08-07] MEDS: Tamsulosin 0.4 MG Cap.ER PO SCH (10:26)
[2017-08-07] MEDS: Aspirin 325 MG Tab.EC PO SCH (10:26)
[2017-08-07] MEDS: metFORMIN 500 MG Tab PO SCH ×2 (10:26→20:05)
[2017-08-07] MEDS: Nystatin Topical Powder 15 GM Bottle TOP SCH (10:33)
[2017-08-07] MEDS ORDERED: Magnesium Hydroxide 400 MG/5 ML Susp 30 ML Cup PO ONE (11:00)
--- NOTE | 2017-08-07 11:16 | PCM.DCSUM1 ---
<Janelle Muhammad - Last Filed: 08/08/17 07:33> Discharge Summary - Hospital Course Free Text/Narrative:: Today patient is now POD #4 s/p lt inguinal hernia repair at [facility] in [place] Patient HR is elevated today in the 100 range; will start metoprolol 12.5mg BID with continued close monitoring as he did not tolerate enalapril well initially during his stay. B/P's have been 130's/80's overnight. He remains afebrile. Troponins trended down and again as noted above patient and family defered Cardiology consult or transfer for further cardiac eval. CK was negative so may have been demand ischemia due to CHF exacerbation. Awaiting am labs this morning. Also added TSH and A1C for baseline. Blood sugars have been stable 100' s-150's during his stay. He has used minimal pain medication the past 24 hours. Call report was placed to accepting Physician in [place] to review case prior to discharge. - Discharge Data Discharge Disposition: DC/Tfer to [facility] 03 Condition: Fair - Discharge Diagnosis/Problem(s) (1) CHF exacerbation SNOMED Code(s): 26479887 ICD Code: I50.9 - HEART FAILURE, UNSPECIFIED Status: Resolved Priority: High Current Visit: Yes QualifierTitle: Congestive heart failure type: unspecified congestive heart failure type Qualified Code(s): I50.9 - Heart failure, unspecified (2) Elevated troponin SNOMED Code(s): 413582434 ICD Code: R74.8 - ABNORMAL LEVELS OF OTHER SERUM ENZYMES Status: Resolved Priority: High Current Visit: Yes (3) Generalized weakness SNOMED Code(s): 13097116 ICD Code: R53.1 - WEAKNESS Status: Acute Priority: High Current Visit: Yes (4) S/P hernia repair SNOMED Code(s): 04142560577795 ICD Code: Z98.890 - OTHER SPECIFIED POSTPROCEDURAL STATES; Z87.19 - PERSONAL HISTORY OF OTHER DISEASES OF THE DIGESTIVE SYSTEM Status: Resolved Priority : Medium Current Visit: No Problem Details: Postop day #4 (5) DM2 (diabetes mellitus, type 2) SNOMED Code(s): 31941480 ICD Code: E11.9 - TYPE 2 DIABETES MELLITUS WITHOUT COMPLICATIONS Status: Chronic Priority: Medium Current Visit: Yes QualifierTitle: Diabetes mellitus complication status: with unspecified complications Diabetes mellitus retirement insulin use: without retirement use Qualified Code(s): E11.8 - Type 2 diabetes mellitus with unspecified complications (6) Hypothyroidism SNOMED Code(s): 84429483 ICD Code: E03.9 - HYPOTHYROIDISM, UNSPECIFIED Status: Chronic Priority: Low Current Visit: Yes QualifierTitle: Hypothyroidism type: unspecified Qualified Code(s): E03.9 - Hypothyroidism, unspecified (7) BPH (benign prostatic hyperplasia) SNOMED Code(s): 521109291 ICD Code: N40.0 - BENIGN PROSTATIC HYPERPLASIA WITHOUT LOWER URINRY TRACT SYMP Status: Chronic Priority: Low Current Visit: Yes QualifierTitle: Lower urinary tract symptom presence: unspecified whether lower urinary tract symptoms present Qualified Code(s): N40.0 - Benign prostatic hyperplasia without lower urinary tract symptoms - Patient Summary/Data Operative Procedure(s) Performed: None Complications: None Consults: Consultations 08/05/17 16:37 OT Evaluation and Treatment [CONS] Routine PT Evaluation and Treatment [CONS] Routine Labs Pending at D/C: TSH, A1C Echocardiogram- will forward results to PCP in [place], [place] when available, likely in next 24 hours. Recommended Follow-up Testing/Procedures: Follow up with General Surgeon in [facility], as previously scheduled ; s/p lt inguinal hernia repair. Follow up with PCP in [place] within one week of discharge. Planned Operative Procedure(s) after DC: None Hospital Course: As above - Patient Instructions Diet: Heart Healthy Diet, Diabetic Diet Activity: As Tolerated (PT/OT to continue at [facility] [place] ) Driving: Do Not Drive Showering/Bathing: May Shower Notify Provider of: Fever, Increased Pain, Swelling and Redness, Nausea and/or Vomiting - Discharge Plan Prescriptions/Med Rec: Furosemide [Lasix] 20 mg PO DAILY 5 Days #5 tablet Home Medications: Home Meds Acetaminophen/HYDROcodone [[place] 325-5 MG] 1 - 2 tab PO Q4HR PRN 08/05/17 [ History] Albuterol [Proventil Neb Soln] 2.5 mg NEB QID 08/05/17 [History] Aspirin 325 mg PO DAILY 08/05/17 [History] Docusate Sodium 100 mg PO BID 08/05/17 [History] Furosemide 40 mg PO DAILY 08/05/17 [History] Levothyroxine [Synthroid] 50 mcg PO DAILY 08/05/17 [History] Nystatin 1 dose TOP DAILY 08/05/17 [History] Simvastatin [Zocor] 20 mg PO BEDTIME 08/05/17 [History] Tamsulosin [Flomax] 0.8 mg PO DAILY 08/05/17 [History] glipiZIDE [Glipizide Xl] 2.5 mg PO DAILY 08/05/17 [History] metFORMIN [Glucophage XR] 500 mg PO BID 08/05/17 [History] Furosemide [Lasix] 20 mg PO DAILY 5 Days #5 tablet 08/07/17 [Rx] Polyethylene Glycol 3350 [MiraLAX] 17 gm PO DAILY PRN packet 08/08/17 [Rx] Patient Handouts: Cardiac-Specific Troponin I and T Test, Heart Failure, Easy- to-Read, Aspirin, ASA oral tablets Referrals: PCP,Not In Area [Primary Care Provider] - (Please call and schedule a follow up appointment with your primary doctor in 2 weeks.) - Discharge Summary/Plan Comment DC Time >30 min.: Yes - General Info Date of Service: 08/08/17 Functional Status: Reports: Pain Controlled, Tolerating Diet, Ambulating, Urinating. Denies: New Symptoms - Review of Systems General: Reports: Weakness (significantly improved). Denies: Fever HEENT: Reports: No Symptoms Pulmonary: Reports: No Symptoms. Denies: Shortness of Breath, Cough Cardiovascular: Reports: No Symptoms. Denies: Chest Pain Gastrointestinal: Reports: No Symptoms Genitourinary: Reports: No Symptoms Neurological: Reports: No Symptoms - Patient Data Vitals - Most Recent: Last Vital Signs Temp 98.2 F 08/08/17 03:22 Pulse 103 H 08/08/17 03:22 Resp 14 08/08/17 03:22 BP 134/75 08/08/17 03:22 Pulse Ox 97 08/08/17 03:22 I&O - Last 24 hours: Intake & Output 08/07/17 08/08/17 08/08/17 22:59 06:59 14:59 Intake Total 1060 500 Balance 1060 500 Lab Results - Last 24 hrs: Laboratory Results - last 24 hr 08/07/17 08/07/17 08/07/17 Range/Units 11:58 19:19 21:47 POC Glucose 113 H 154 H 106 (83-110) mg/dL 08/08/17 Range/Units 06:17 POC Glucose 146 H (83-110) mg/dL Med Orders - Current: Current Medications Acetaminophen (Tylenol) 650 mg PO Q4H PRN PRN Reason: Pain (Mild 1-3)/fever Hydrocodone Bitart/Acetaminophen ([place] 325-5 Mg) 1 tab PO Q4H PRN PRN Reason: Pain (moderate 4-6) Hydrocodone Bitart/Acetaminophen ([place] 325-5 Mg) 2 tab PO Q4H PRN PRN Reason: Pain (moderate 4-6) Albuterol/Ipratropium (Duoneb 3.0-0.5 Mg/3 Ml) 3 ml NEB Q4H PRN PRN Reason: Shortness Of Breath/wheezing Aspirin (Ecotrin) 325 mg PO DAILY [facility] Last Admin: 08/07/17 10:26 Dose: 325 mg Docusate Sodium (Colace) 100 mg PO BID PRN PRN Reason: Constipation Last Admin: 08/06/17 22:10 Dose: 100 mg Enoxaparin Sodium (Lovenox) 40 mg SUBCUT DAILY [facility] Last Admin: 08/07/17 10:24 Dose: 40 mg Furosemide (Lasix) 40 mg PO DAILY [facility] Last Admin: 08/07/17 10:25 Dose: 40 mg Levothyroxine Sodium (Synthroid) 50 mcg PO DAILY [facility] Last Admin: 08/07/17 10:25 Dose: 50 mcg Metformin HCl (Glucophage) 500 mg PO BID [facility] Last Admin: 08/07/17 20:05 Dose: 500 mg Metoprolol Tartrate (Lopressor) 12.5 mg PO Q12HR [facility] Nystatin (Nystop) 0 gm TOP DAILY [facility] Last Admin: 08/07/17 10:33 Dose: 1 dose Ondansetron HCl (Zofran Odt) 4 mg PO Q6H PRN PRN Reason: nausea, able to take PO Ondansetron HCl (Zofran) 4 mg IV Q6H PRN PRN Reason: Nausea/Vomiting Polyethylene Glycol (Miralax) 17 gm PO DAILY PRN PRN Reason: Constipation Last Admin: 08/06/17 09:53 Dose: 17 gm Simvastatin (Zocor) 20 mg PO BEDTIME [facility] Last Admin: 08/07/17 20:05 Dose: 20 mg Sodium Chloride (Saline Flush) 10 ml FLUSH ASDIRECTED PRN PRN Reason: Keep Vein Open Tamsulosin HCl (Flomax) 0.4 mg PO DAILY [facility] Last Admin: 08/07/17 10:26 Dose: 0.4 mg Temazepam (Restoril) 7.5 mg PO BEDTIME PRN PRN Reason: Sleep Discontinued Medications Aspirin (Aspirin) 324 mg PO ONETIME ONE Stop: 08/05/17 14:01 Last Admin: 08/05/17 15:23 Dose: 324 mg Enalapril Maleate (Vasotec) 2.5 mg PO BID [facility] Last Admin: 08/06/17 21:04 Dose: 2.5 mg Enoxaparin Sodium (Lovenox) 40 mg SUBCUT ONETIME ONE Stop: 08/05/17 14:01 Last Admin: 08/05/17 15:23 Dose: 40 mg Enoxaparin Sodium (Lovenox) Confirm Administered Dose 40 mg .ROUTE .STK-MED ONE Stop: 08/05/17 15:33 Last Admin: 08/05/17 15:32 Dose: Not Given Furosemide (Lasix) 60 mg IVPUSH NOW ONE Stop: 08/05/17 14:01 Last Admin: 08/05/17 15:00 Dose: 60 mg Furosemide (Lasix) 40 mg IVPUSH Q12H [facility] Last Admin: 08/06/17 05:52 Dose: 40 mg Sodium Chloride (Normal Saline) 500 mls @ 500 mls/hr IV ONETIME ONE Stop: 08/05/17 13:46 Last Admin: 08/05/17 18:28 Dose: Not Given Sodium Chloride (Normal Saline) 1,000 mls @ 100 mls/hr IV ASDIRECTED [facility] Sodium Chloride (Normal Saline) 500 mls @ 999 mls/hr IV .BOLUS ONE Stop: 08/06/17 11:38 Last Admin: 08/06/17 11:22 Dose: 999 mls/hr Sodium Chloride (Normal Saline) 500 mls @ 999 mls/hr IV ASDIRECTED [facility] Stop: 08/06/17 20:14 Last Admin: 08/06/17 21:06 Dose: 999 mls/hr Magnesium Hydroxide (Milk Of Magnesia) 30 ml PO ONETIME ONE Stop: 08/07/17 11:01 Last Admin: 08/07/17 11:27 Dose: 30 ml Morphine Sulfate (Morphine) 2 mg IVPUSH Q2H PRN PRN Reason: Pain (severe 7-10) Stop: 08/06/17 16:40 - Exam Quality Assessment: Reports: DVT Prophylaxis General: Reports: Alert, Oriented, Cooperative, No Acute Distress HEENT: Reports: Pupils Equal, EOMI, Mucous Membr. Moist/[place] Neck: Reports: Supple, No JVD Lungs: Reports: Clear to Auscultation, Normal Respiratory Effort, Decreased Breath Sounds (bases) Cardiovascular: Reports: Regular Rate, Regular Rhythm GI/Abdominal Exam: Normal Bowel Sounds, Soft, Non-Tender (Male) Exam: Deferred Rectal (Males) Exam: Deferred Extremities: Normal Inspection, No Pedal Edema Skin: Reports: Warm, Dry Neurological: Reports: No New Focal Deficit Psy/Mental Status: Reports: Alert, Normal Affect, Normal Mood *Q Meaningful Use (DIS) - VTE *Q VTE Criteria *Q: - Stroke *Q Stroke Criteria *Q: - AMI *Q AMI Criteria *Q: <JesusjosiahChaparro - Last Filed: 08/08/17 15:03> Discharge Summary - Hospital Course Free Text/Narrative:: Patient is an 87-year-old man with past medical history of diabetes mellitus type 2, hypertension, hyperlipidemia, hypothyroidism, benign prostatic hyperplasia, chronic congestive heart failure, who recently underwent a left inguinal hernia repair yesterday at [facility] in [place] and was discharged same day. He was brought into the emergency room this morning for evaluation of complaints of generalized weakness and malaise. Most of the history was obtained from the family at the bedside as patient was too weak to give any history. According to the family, patient was discharged immediately after surgery and drove all the way from [place] to [place] where they stopped for the night. He was said to have been restless, nauseous, and was unable to eat anything post surgery. They watched him overnight and when he was not getting better at this morning they decided to bring him to the emergency room for further evaluation and treatment. At the emergency room, laboratory investigations which were done revealed an elevated troponin level as well as an elevated BNP level. The emergency room provider discussed with the patient and family regarding the results and he indicated that he did not want any intervention regarding his heart as he is aware that he has heart failure. They insisted that they want to stay in this hospital and that they want patient to be strong enough so he can go home. His CODE STATUS is DNR/DNI. He denies any chest pain, shortness of breath, cough, fever or bleeding from the hernia repair site. He does complain of extreme weakness. He will be admitted for further evaluation and treatment. Once admitted the patient's weakness improved. He was started on enalapril, however he did not tolerate this. He was switched to Lasix. He will be discharged home on his usual medications and additionally, on 20mg of lasix daily for 5 days. He should follow-up with his PCP to determine if he needs to continue on lasix therapy. He should also be considered for a cardiology visit, as his troponin was elevated here. He should follow-up with his PCP in [place] within 7-10 day, sooner if needed. He should follow-up with his surgeon in [place] as indicated. He will be discharged to [place] swing-bed and transported there via [place] ambulance. - Discharge Data Discharge Date: 08/08/17 (Admit date: 08/05/17) - Discharge Diagnosis/Problem(s) (1) CHF exacerbation SNOMED Code(s): 24848097 ICD Code: I50.9 - HEART FAILURE, UNSPECIFIED Status: Resolved Priority: High Current Visit: Yes Qualifiers: Congestive heart failure type: unspecified congestive heart failure type Qualified Code(s): I50.9 - Heart failure, unspecified (2) Elevated troponin SNOMED Code(s): 089973091 ICD Code: R74.8 - ABNORMAL LEVELS OF OTHER SERUM ENZYMES Status: Resolved Priority: High Current Visit: Yes (3) Generalized weakness SNOMED Code(s): 76312442 ICD Code: R53.1 - WEAKNESS Status: Acute Priority: High Current Visit: Yes (4) DM2 (diabetes mellitus, type 2) SNOMED Code(s): 05352897 ICD Code: E11.9 - TYPE 2 DIABETES MELLITUS WITHOUT COMPLICATIONS Status: Chronic Priority: Medium Current Visit: Yes Qualifiers: Diabetes mellitus complication status: with unspecified complications Diabetes mellitus terminal operator insulin use: without terminal operator use Qualified Code( s): E11.8 - Type 2 diabetes mellitus with unspecified complications - Patient Summary/Data Consults: Consultations 08/05/17 16:37 OT Evaluation and Treatment [CONS] Routine PT Evaluation and Treatment [CONS] Routine - Patient Instructions Diet: Heart Healthy Diet, Diabetic Diet Activity: As Tolerated Driving: Do Not Drive Showering/Bathing: May Shower Notify Provider of: Fever, Increased Pain, Swelling and Redness, Nausea and/or Vomiting - Discharge Summary/Plan Comment DC Time >30 min.: Yes (45 mins) - General Info Admission Dx/Problem (Free Text: Admission Diagnosis/Problem Admission Diagnosis/Problem Heart failure Generalized weakness and malaise Subjective Update: 87-year-old man who underwent a left inguinal hernia repair postop day #2. He was seen and examined bedside with the nurse. Still complains of generalized weakness but denies any pain. He was started on Lasix as his proBNP was elevated. He has been diuresing well what vitals have been unstable. Functional Status: Reports: Pain Controlled, Tolerating Diet, Ambulating, Urinating. Denies: New Symptoms - Review of Systems General: Reports: No Symptoms HEENT: Reports: No Symptoms Pulmonary: Reports: No Symptoms Cardiovascular: Reports: No Symptoms Gastrointestinal: Reports: No Symptoms Genitourinary: Reports: No Symptoms Musculoskeletal: Reports: No Symptoms Skin: Reports: No Symptoms Neurological: Reports: No Symptoms Psychiatric: Reports: No Symptoms - Patient Data Vitals - Most Recent: Last Vital Signs Temp 98.2 F 08/07/17 07:46 Pulse 98 08/07/17 07:46 Resp 18 08/07/17 07:46 BP 118/66 08/07/17 07:46 Pulse Ox 94 L 08/07/17 07:46 Weight - Most Recent: 183 lb 1.6 oz I&O - Last 24 hours: Intake & Output 08/06/17 08/07/17 08/07/17 22:59 06:59 14:59 Intake Total 1180 850 120 Balance 1180 850 120 Lab Results - Last 24 hrs: Laboratory Results - last 24 hr 08/06/17 08/06/17 08/06/17 Range/Units 11:13 17:23 17:32 WBC (4.23-9.07) K/mm3 RBC (4.63-6.08) M/mm3 Hgb (13.7-17.5) gm/L Hct (40.1-51.0) % MCV (79.0-92.2) fl MCH (25.7-32.2) pg MCHC (32.2-35.5) g/dl RDW Std Deviation (35.1-43.9) fL Plt Count (163-337) K/mm3 MPV (9.4-12.3) fl Neut % (Auto) (34.0-67.9) % Lymph % (Auto) (21.8-53.1) % [place] % (Auto) (5.3-12.2) % Eos % (Auto) (0.8-7.0) Baso % (Auto) (0.1-1.2) % Neut # (Auto) (1.78-5.38) K/mm3 Lymph # (Auto) (1.32-3.57) K/mm3 [place] # (Auto) (0.30-0.82) K/mm3 Eos # (Auto) (0.04-0.54) K/mm3 Baso # (Auto) (0.01-0.08) K/mm3 Sodium (136-145) mEq/L Potassium (3.5-5.1) mEq/L Chloride (98-107) mEq/L Carbon Dioxide (21-32) mEq/L Anion Gap (5-15) BUN (7-18) mg/dL Creatinine (0.7-1.3) mg/dL Est Cr Clr Drug Dosing mL/min Estimated GFR (MDRD) (>60) mL/min BUN/Creatinine Ratio (14-18) Glucose (83-115) mg/dL POC Glucose 149 H 103 (83-110) mg/dL Calcium (8.5-10.1) mg/dL Troponin I 0.126 H* (0.00-0.056) ng/mL 08/06/17 08/07/17 08/07/17 Range/Units 20:21 05:48 05:57 WBC (4.23-9.07) K/mm3 RBC (4.63-6.08) M/mm3 Hgb (13.7-17.5) gm/L Hct (40.1-51.0) % MCV (79.0-92.2) fl MCH (25.7-32.2) pg MCHC (32.2-35.5) g/dl RDW Std Deviation (35.1-43.9) fL Plt Count (163-337) K/mm3 MPV (9.4-12.3) fl Neut % (Auto) (34.0-67.9) % Lymph % (Auto) (21.8-53.1) % [place] % (Auto) (5.3-12.2) % Eos % (Auto) (0.8-7.0) Baso % (Auto) (0.1-1.2) % Neut # (Auto) (1.78-5.38) K/mm3 Lymph # (Auto) (1.32-3.57) K/mm3 [place] # (Auto) (0.30-0.82) K/mm3 Eos # (Auto) (0.04-0.54) K/mm3 Baso # (Auto) (0.01-0.08) K/mm3 Sodium 137 (136-145) mEq/L Potassium 3.9 (3.5-5.1) mEq/L Chloride 102 (98-107) mEq/L Carbon Dioxide 26 (21-32) mEq/L Anion Gap 12.9 (5-15) BUN 49 H (7-18) mg/dL Creatinine 1.3 (0.7-1.3) mg/dL Est Cr Clr Drug Dosing 41.03 mL/min Estimated GFR (MDRD) 52 (>60) mL/min BUN/Creatinine Ratio 37.7 H (14-18) Glucose 145 H (83-115) mg/dL POC Glucose 142 H 123 H (83-110) mg/dL Calcium 8.8 (8.5-10.1) mg/dL Troponin I (0.00-0.056) ng/mL 08/07/17 Range/Units 06:00 WBC 11.30 H (4.23-9.07) K/mm3 RBC 4.45 L (4.63-6.08) M/mm3 Hgb 13.2 L (13.7-17.5) gm/L Hct 39.3 L (40.1-51.0) % MCV 88.3 (79.0-92.2) fl MCH 29.7 (25.7-32.2) pg MCHC 33.6 (32.2-35.5) g/dl RDW Std Deviation 47.7 H (35.1-43.9) fL Plt Count 196 (163-337) K/mm3 MPV 10.8 (9.4-12.3) fl Neut % (Auto) 75.5 H (34.0-67.9) % Lymph % (Auto) 15.0 L (21.8-53.1) % [place] % (Auto) 6.4 (5.3-12.2) % Eos % (Auto) 2.5 (0.8-7.0) Baso % (Auto) 0.3 (0.1-1.2) % Neut # (Auto) 8.54 H (1.78-5.38) K/mm3 Lymph # (Auto) 1.70 (1.32-3.57) K/mm3 [place] # (Auto) 0.72 (0.30-0.82) K/mm3 Eos # (Auto) 0.28 (0.04-0.54) K/mm3 Baso # (Auto) 0.03 (0.01-0.08) K/mm3 Sodium (136-145) mEq/L Potassium (3.5-5.1) mEq/L Chloride (98-107) mEq/L Carbon Dioxide (21-32) mEq/L Anion Gap (5-15) BUN (7-18) mg/dL Creatinine (0.7-1.3) mg/dL Est Cr Clr Drug Dosing mL/min Estimated GFR (MDRD) (>60) mL/min BUN/Creatinine Ratio (14-18) Glucose (83-115) mg/dL POC Glucose (83-110) mg/dL Calcium (8.5-10.1) mg/dL Troponin I (0.00-0.056) ng/mL Med Orders - Current: Current Medications Acetaminophen (Tylenol) 650 mg PO Q4H PRN PRN Reason: Pain (Mild 1-3)/fever Hydrocodone Bitart/Acetaminophen ([place] 325-5 Mg) 1 tab PO Q4H PRN PRN Reason: Pain (moderate 4-6) Hydrocodone Bitart/Acetaminophen ([place] 325-5 Mg) 2 tab PO Q4H PRN PRN Reason: Pain (moderate 4-6) Albuterol/Ipratropium (Duoneb 3.0-0.5 Mg/3 Ml) 3 ml NEB Q4H PRN PRN Reason: Shortness Of Breath/wheezing Aspirin (Ecotrin) 325 mg PO DAILY [facility] Last Admin: 08/07/17 10:26 Dose: 325 mg Docusate Sodium (Colace) 100 mg PO BID PRN PRN Reason: Constipation Last Admin: 08/06/17 22:10 Dose: 100 mg Enoxaparin Sodium (Lovenox) 40 mg SUBCUT DAILY [facility] Last Admin: 08/07/17 10:24 Dose: 40 mg Furosemide (Lasix) 40 mg PO DAILY [facility] Last Admin: 08/07/17 10:25 Dose: 40 mg Levothyroxine Sodium (Synthroid) 50 mcg PO DAILY [facility] Last Admin: 08/07/17 10:25 Dose: 50 mcg Metformin HCl (Glucophage) 500 mg PO BID [facility] Last Admin: 08/07/17 10:26 Dose: 500 mg Nystatin (Nystop) 0 gm TOP DAILY [facility] Last Admin: 08/07/17 10:33 Dose: 1 dose Ondansetron HCl (Zofran Odt) 4 mg PO Q6H PRN PRN Reason: nausea, able to take PO Ondansetron HCl (Zofran) 4 mg IV Q6H PRN PRN Reason: Nausea/Vomiting Polyethylene Glycol (Miralax) 17 gm PO DAILY PRN PRN Reason: Constipation Last Admin: 08/06/17 09:53 Dose: 17 gm Simvastatin (Zocor) 20 mg PO BEDTIME [facility] Last Admin: 08/06/17 21:03 Dose: 20 mg Sodium Chloride (Saline Flush) 10 ml FLUSH ASDIRECTED PRN PRN Reason: Keep Vein Open Tamsulosin HCl (Flomax) 0.4 mg PO DAILY [facility] Last Admin: 08/07/17 10:26 Dose: 0.4 mg Temazepam (Restoril) 7.5 mg PO BEDTIME PRN PRN Reason: Sleep Discontinued Medications Aspirin (Aspirin) 324 mg PO ONETIME ONE Stop: 08/05/17 14:01 Last Admin: 08/05/17 15:23 Dose: 324 mg Enalapril Maleate (Vasotec) 2.5 mg PO BID [facility] Last Admin: 08/06/17 21:04 Dose: 2.5 mg Enoxaparin Sodium (Lovenox) 40 mg SUBCUT ONETIME ONE Stop: 08/05/17 14:01 Last Admin: 08/05/17 15:23 Dose: 40 mg Enoxaparin Sodium (Lovenox) Confirm Administered Dose 40 mg .ROUTE .STK-MED ONE Stop: 08/05/17 15:33 Last Admin: 08/05/17 15:32 Dose: Not Given Furosemide (Lasix) 60 mg IVPUSH NOW ONE Stop: 08/05/17 14:01 Last Admin: 08/05/17 15:00 Dose: 60 mg Furosemide (Lasix) 40 mg IVPUSH Q12H [facility] Last Admin: 08/06/17 05:52 Dose: 40 mg Sodium Chloride (Normal Saline) 500 mls @ 500 mls/hr IV ONETIME ONE Stop: 08/05/17 13:46 Last Admin: 08/05/17 18:28 Dose: Not Given Sodium Chloride (Normal Saline) 1,000 mls @ 100 mls/hr IV ASDIRECTED [facility] Sodium Chloride (Normal Saline) 500 mls @ 999 mls/hr IV .BOLUS ONE Stop: 08/06/17 11:38 Last Admin: 08/06/17 11:22 Dose: 999 mls/hr Sodium Chloride (Normal Saline) 500 mls @ 999 mls/hr IV ASDIRECTED [facility] Stop: 08/06/17 20:14 Last Admin: 08/06/17 21:06 Dose: 999 mls/hr Magnesium Hydroxide (Milk Of Magnesia) 30 ml PO ONETIME ONE Stop: 08/07/17 11:01 Morphine Sulfate (Morphine) 2 mg IVPUSH Q2H PRN PRN Reason: Pain (severe 7-10) Stop: 08/06/17 16:40 - Exam General: Reports: Alert, Oriented, Cooperative, No Acute Distress HEENT: Reports: Pupils Equal, Pupils Reactive, Mucous Membr. Moist/[place] Neck: Reports: Supple, Trachea Midline, No JVD Lungs: Reports: Clear to Auscultation, Normal Respiratory Effort Cardiovascular: Reports: Regular Rate, Regular Rhythm GI/Abdominal Exam: Normal Bowel Sounds, Soft, Non-Tender, No Organomegaly, No Distention, No Abnormal Bruit, No Mass, Pelvis Stable (Male) Exam: Deferred Rectal (Males) Exam: Deferred Back Exam: Reports: Normal Inspection, Full Range of Motion Extremities: Normal Inspection, Normal Range of Motion, Non-Tender, No Pedal Edema, Normal Capillary Refill Skin: Reports: Warm, Dry, Intact Wound/Incisions: Reports: Healing Well Neurological: Reports: No New Focal Deficit Psy/Mental Status: Reports: Alert, Normal Affect, Normal Mood *Q Meaningful Use (DIS) - VTE *Q VTE Criteria *Q: - Stroke *Q Stroke Criteria *Q: - AMI *Q AMI Criteria *Q:
--- NOTE | 2017-08-07 14:03 | PCM.PN ---
- General Info Date of Service: 08/07/17 Admission Dx/Problem (Free Text): Admission Diagnosis/Problem Admission Diagnosis/Problem Heart failure Generalized weakness and malaise Subjective Update: 87-year-old man who underwent a left inguinal hernia repair postop day #2. He was seen and examined bedside with the nurse. Still complains of generalized weakness but denies any pain. He was started on Lasix as his proBNP was elevated. He has been diuresing well what vitals have been unstable. Functional Status: Reports: Pain Controlled, Tolerating Diet, Ambulating, Urinating. Denies: New Symptoms - Review of Systems General: Reports: No Symptoms HEENT: Reports: No Symptoms Pulmonary: Reports: No Symptoms Cardiovascular: Reports: No Symptoms Gastrointestinal: Reports: No Symptoms Genitourinary: Reports: No Symptoms Musculoskeletal: Reports: No Symptoms Skin: Reports: No Symptoms Neurological: Reports: No Symptoms Psychiatric: Reports: No Symptoms Systems Review Comment:: Patient would like to leave home today. kitchen and counter worker reports difficulty finding patient a bed. He will remain in our care until tomorrow and then be discharged via [place] [facility] to [facility], per report. - Patient Data Vitals - Most Recent: Last Vital Signs Temp 97.2 F 08/07/17 12:09 Pulse 100 08/07/17 12:09 Resp 19 08/07/17 12:09 BP 101/46 L 08/07/17 12:09 Pulse Ox 94 L 08/07/17 12:09 Weight - Most Recent: 183 lb 1.6 oz I&O - Last 24 Hours: Intake & Output 08/06/17 08/07/17 08/07/17 22:59 06:59 14:59 Intake Total 1180 850 120 Balance 1180 850 120 Lab Results Last 24 Hours: Laboratory Results - last 24 hr 08/06/17 08/06/17 08/06/17 Range/Units 17:23 17:32 20:21 WBC (4.23-9.07) K/mm3 RBC (4.63-6.08) M/mm3 Hgb (13.7-17.5) gm/L Hct (40.1-51.0) % MCV (79.0-92.2) fl MCH (25.7-32.2) pg MCHC (32.2-35.5) g/dl RDW Std Deviation (35.1-43.9) fL Plt Count (163-337) K/mm3 MPV (9.4-12.3) fl Neut % (Auto) (34.0-67.9) % Lymph % (Auto) (21.8-53.1) % [place] % (Auto) (5.3-12.2) % Eos % (Auto) (0.8-7.0) Baso % (Auto) (0.1-1.2) % Neut # (Auto) (1.78-5.38) K/mm3 Lymph # (Auto) (1.32-3.57) K/mm3 [place] # (Auto) (0.30-0.82) K/mm3 Eos # (Auto) (0.04-0.54) K/mm3 Baso # (Auto) (0.01-0.08) K/mm3 Sodium (136-145) mEq/L Potassium (3.5-5.1) mEq/L Chloride (98-107) mEq/L Carbon Dioxide (21-32) mEq/L Anion Gap (5-15) BUN (7-18) mg/dL Creatinine (0.7-1.3) mg/dL Est Cr Clr Drug Dosing mL/min Estimated GFR (MDRD) (>60) mL/min BUN/Creatinine Ratio (14-18) Glucose (83-115) mg/dL POC Glucose 103 142 H (83-110) mg/dL Calcium (8.5-10.1) mg/dL Troponin I 0.126 H* (0.00-0.056) ng/mL 08/07/17 08/07/17 08/07/17 Range/Units 05:48 05:57 06:00 WBC 11.30 H (4.23-9.07) K/mm3 RBC 4.45 L (4.63-6.08) M/mm3 Hgb 13.2 L (13.7-17.5) gm/L Hct 39.3 L (40.1-51.0) % MCV 88.3 (79.0-92.2) fl MCH 29.7 (25.7-32.2) pg MCHC 33.6 (32.2-35.5) g/dl RDW Std Deviation 47.7 H (35.1-43.9) fL Plt Count 196 (163-337) K/mm3 MPV 10.8 (9.4-12.3) fl Neut % (Auto) 75.5 H (34.0-67.9) % Lymph % (Auto) 15.0 L (21.8-53.1) % [place] % (Auto) 6.4 (5.3-12.2) % Eos % (Auto) 2.5 (0.8-7.0) Baso % (Auto) 0.3 (0.1-1.2) % Neut # (Auto) 8.54 H (1.78-5.38) K/mm3 Lymph # (Auto) 1.70 (1.32-3.57) K/mm3 [place] # (Auto) 0.72 (0.30-0.82) K/mm3 Eos # (Auto) 0.28 (0.04-0.54) K/mm3 Baso # (Auto) 0.03 (0.01-0.08) K/mm3 Sodium 137 (136-145) mEq/L Potassium 3.9 (3.5-5.1) mEq/L Chloride 102 (98-107) mEq/L Carbon Dioxide 26 (21-32) mEq/L Anion Gap 12.9 (5-15) BUN 49 H (7-18) mg/dL Creatinine 1.3 (0.7-1.3) mg/dL Est Cr Clr Drug Dosing 41.03 mL/min Estimated GFR (MDRD) 52 (>60) mL/min BUN/Creatinine Ratio 37.7 H (14-18) Glucose 145 H (83-115) mg/dL POC Glucose 123 H (83-110) mg/dL Calcium 8.8 (8.5-10.1) mg/dL Troponin I (0.00-0.056) ng/mL 08/07/17 Range/Units 11:58 WBC (4.23-9.07) K/mm3 RBC (4.63-6.08) M/mm3 Hgb (13.7-17.5) gm/L Hct (40.1-51.0) % MCV (79.0-92.2) fl MCH (25.7-32.2) pg MCHC (32.2-35.5) g/dl RDW Std Deviation (35.1-43.9) fL Plt Count (163-337) K/mm3 MPV (9.4-12.3) fl Neut % (Auto) (34.0-67.9) % Lymph % (Auto) (21.8-53.1) % [place] % (Auto) (5.3-12.2) % Eos % (Auto) (0.8-7.0) Baso % (Auto) (0.1-1.2) % Neut # (Auto) (1.78-5.38) K/mm3 Lymph # (Auto) (1.32-3.57) K/mm3 [place] # (Auto) (0.30-0.82) K/mm3 Eos # (Auto) (0.04-0.54) K/mm3 Baso # (Auto) (0.01-0.08) K/mm3 Sodium (136-145) mEq/L Potassium (3.5-5.1) mEq/L Chloride (98-107) mEq/L Carbon Dioxide (21-32) mEq/L Anion Gap (5-15) BUN (7-18) mg/dL Creatinine (0.7-1.3) mg/dL Est Cr Clr Drug Dosing mL/min Estimated GFR (MDRD) (>60) mL/min BUN/Creatinine Ratio (14-18) Glucose (83-115) mg/dL POC Glucose 113 H (83-110) mg/dL Calcium (8.5-10.1) mg/dL Troponin I (0.00-0.056) ng/mL Med Orders - Current: Current Medications Acetaminophen (Tylenol) 650 mg PO Q4H PRN PRN Reason: Pain (Mild 1-3)/fever Hydrocodone Bitart/Acetaminophen ([place] 325-5 Mg) 1 tab PO Q4H PRN PRN Reason: Pain (moderate 4-6) Hydrocodone Bitart/Acetaminophen ([place] 325-5 Mg) 2 tab PO Q4H PRN PRN Reason: Pain (moderate 4-6) Albuterol/Ipratropium (Duoneb 3.0-0.5 Mg/3 Ml) 3 ml NEB Q4H PRN PRN Reason: Shortness Of Breath/wheezing Aspirin (Ecotrin) 325 mg PO DAILY [facility] Last Admin: 08/07/17 10:26 Dose: 325 mg Docusate Sodium (Colace) 100 mg PO BID PRN PRN Reason: Constipation Last Admin: 08/06/17 22:10 Dose: 100 mg Enoxaparin Sodium (Lovenox) 40 mg SUBCUT DAILY [facility] Last Admin: 08/07/17 10:24 Dose: 40 mg Furosemide (Lasix) 40 mg PO DAILY [facility] Last Admin: 08/07/17 10:25 Dose: 40 mg Levothyroxine Sodium (Synthroid) 50 mcg PO DAILY [facility] Last Admin: 08/07/17 10:25 Dose: 50 mcg Metformin HCl (Glucophage) 500 mg PO BID [facility] Last Admin: 08/07/17 10:26 Dose: 500 mg Nystatin (Nystop) 0 gm TOP DAILY [facility] Last Admin: 08/07/17 10:33 Dose: 1 dose Ondansetron HCl (Zofran Odt) 4 mg PO Q6H PRN PRN Reason: nausea, able to take PO Ondansetron HCl (Zofran) 4 mg IV Q6H PRN PRN Reason: Nausea/Vomiting Polyethylene Glycol (Miralax) 17 gm PO DAILY PRN PRN Reason: Constipation Last Admin: 08/06/17 09:53 Dose: 17 gm Simvastatin (Zocor) 20 mg PO BEDTIME [facility] Last Admin: 08/06/17 21:03 Dose: 20 mg Sodium Chloride (Saline Flush) 10 ml FLUSH ASDIRECTED PRN PRN Reason: Keep Vein Open Tamsulosin HCl (Flomax) 0.4 mg PO DAILY [facility] Last Admin: 08/07/17 10:26 Dose: 0.4 mg Temazepam (Restoril) 7.5 mg PO BEDTIME PRN PRN Reason: Sleep Discontinued Medications Aspirin (Aspirin) 324 mg PO ONETIME ONE Stop: 08/05/17 14:01 Last Admin: 08/05/17 15:23 Dose: 324 mg Enalapril Maleate (Vasotec) 2.5 mg PO BID [facility] Last Admin: 08/06/17 21:04 Dose: 2.5 mg Enoxaparin Sodium (Lovenox) 40 mg SUBCUT ONETIME ONE Stop: 08/05/17 14:01 Last Admin: 08/05/17 15:23 Dose: 40 mg Enoxaparin Sodium (Lovenox) Confirm Administered Dose 40 mg .ROUTE .STK-MED ONE Stop: 08/05/17 15:33 Last Admin: 08/05/17 15:32 Dose: Not Given Furosemide (Lasix) 60 mg IVPUSH NOW ONE Stop: 08/05/17 14:01 Last Admin: 08/05/17 15:00 Dose: 60 mg Furosemide (Lasix) 40 mg IVPUSH Q12H [facility] Last Admin: 08/06/17 05:52 Dose: 40 mg Sodium Chloride (Normal Saline) 500 mls @ 500 mls/hr IV ONETIME ONE Stop: 08/05/17 13:46 Last Admin: 08/05/17 18:28 Dose: Not Given Sodium Chloride (Normal Saline) 1,000 mls @ 100 mls/hr IV ASDIRECTED [facility] Sodium Chloride (Normal Saline) 500 mls @ 999 mls/hr IV .BOLUS ONE Stop: 08/06/17 11:38 Last Admin: 08/06/17 11:22 Dose: 999 mls/hr Sodium Chloride (Normal Saline) 500 mls @ 999 mls/hr IV ASDIRECTED [facility] Stop: 08/06/17 20:14 Last Admin: 08/06/17 21:06 Dose: 999 mls/hr Magnesium Hydroxide (Milk Of Magnesia) 30 ml PO ONETIME ONE Stop: 08/07/17 11:01 Last Admin: 08/07/17 11:27 Dose: 30 ml Morphine Sulfate (Morphine) 2 mg IVPUSH Q2H PRN PRN Reason: Pain (severe 7-10) Stop: 08/06/17 16:40 - Exam Quality Assessment: DVT Prophylaxis General: Alert, Oriented, Cooperative HEENT: Pupils Equal, Pupils Reactive, Mucous Membr. Moist/[place] Neck: Supple, Trachea Midline, No JVD Lungs: Clear to Auscultation, Normal Respiratory Effort Cardiovascular: Regular Rate, Regular Rhythm, No Murmurs GI/Abdominal Exam: Normal Bowel Sounds, Soft, Non-Tender, No Organomegaly, No Distention, No Mass (Male) Exam: Deferred Back Exam: Normal Inspection, Decreased Range of Motion Extremities: Normal Inspection, Normal Range of Motion, Non-Tender, No Pedal Edema, Normal Capillary Refill Peripheral Pulses: 2+: Radial (L), Radial (R), Posterior Tibial (L), Posterior Tibial (R), Dorsalis Pedis (L), Dorsalis Pedis (R) Skin: Warm, Dry, Intact Neurological: No New Focal Deficit Psy/Mental Status: Alert, Normal Affect, Normal Mood Physical Findings Comments:: Patient examined while lying in bed. He is hemodynamically stable. He will likely be discharged tomorrow pending placement in [place]. - Problem List & Annotations (1) CHF exacerbation SNOMED Code(s): 52874429 Code(s): I50.9 - HEART FAILURE, UNSPECIFIED Status: Acute Priority: High Current Visit: Yes Qualifiers: Congestive heart failure type: unspecified congestive heart failure type Qualified Code(s): I50.9 - Heart failure, unspecified (2) DM2 (diabetes mellitus, type 2) SNOMED Code(s): 70874584 Code(s): E11.9 - TYPE 2 DIABETES MELLITUS WITHOUT COMPLICATIONS Status: Chronic Priority: Low Current Visit: Yes Qualifiers: Diabetes mellitus complication status: with unspecified complications Diabetes mellitus terminal gauger insulin use: without terminal gauger use Qualified Code( s): E11.8 - Type 2 diabetes mellitus with unspecified complications (3) Elevated troponin SNOMED Code(s): 139046309 Code(s): R74.8 - ABNORMAL LEVELS OF OTHER SERUM ENZYMES Status: Acute Priority: High Current Visit: Yes (4) Generalized weakness SNOMED Code(s): 97511270 Code(s): R53.1 - WEAKNESS Status: Acute Priority: High Current Visit: Yes - Problem List Review Problem List Initiated/Reviewed/Updated: Yes - My Orders Last 24 Hours: My Active Orders 08/07/17 11:06 Ready for Discharge [RC] PER UNIT ROUTINE - Assessment Assessment:: 1. Status post left inguinal hernia repair. Postop Day #2. 2. Generalized weakness and malaise. 3. Elevated troponin possibly due to non-ST elevation AR. 4. Acute exacerbation of chronic congestive heart failure. 5. Acute physical deconditioning. - Plan Plan:: 1. Continue Med/Surg management on telemetry monitoring. 2. Complete echocardiogram on Monday. 3. Continue aspirin, statin. 4. IV Lasix 40 mg daily. 5. Physical therapy and outpatient therapy evaluation and recommendations noted and appreciated. 6. DVT prophylaxis with Lovenox. 7. Discharge planning.- Pending placement in [facility] tomorrow
[2017-08-07] MEDS: Simvastatin 20 MG Tab PO SCH (20:05)
[2017-08-08 08:38] VITALS: BP 118/60
[2017-08-08] MEDS: Aspirin 325 MG Tab.EC PO SCH (08:48)
[2017-08-08] MEDS: Levothyroxine 50 MCG Tab PO SCH (08:48)
[2017-08-08] MEDS: Furosemide 40 MG Tab PO SCH (08:48)
[2017-08-08] MEDS: Tamsulosin 0.4 MG Cap.ER PO SCH (08:48)
[2017-08-08] MEDS: metFORMIN 500 MG Tab PO SCH (08:48)
[2017-08-08] MEDS: Metoprolol Tartrate 25 MG Tab PO SCH ×2 (08:49→11:19)
[2017-08-08] MEDS: Nystatin Topical Powder 15 GM Bottle TOP SCH (08:50)
[2017-08-08] MEDS: Enoxaparin 40 MG/0.4 ML Syringe SUBCUT SCH (08:50)
== END 2017-08-08 10:07 | DRG 292 ==
LOC: JD.ED 12:18 → JD.MS 16:02 → UNDOADMIN 16:02 → JD.MS 16:05
PROVIDERS: ADMIT Hospitalist; ATTEND Hospitalist
DX: I11.0 Hypertensive heart disease with heart failure (principal); I69.354 Hemiplegia and hemiparesis following cerebral infarction affecting left non-dominant side; I50.9 Heart failure, unspecified; R74.8 Abnormal levels of other serum enzymes; R53.1 Weakness; Z98.890 Other specified postprocedural states; E11.9 Type 2 diabetes mellitus without complications; E03.9 Hypothyroidism, unspecified; N40.0 Benign prostatic hyperplasia without lower urinary tract symptoms; E78.5 Hyperlipidemia, unspecified; J30.1 Allergic rhinitis due to pollen; Z66 Do not resuscitate; Z79.84 Long term (current) use of oral hypoglycemic drugs; Z79.82 Long term (current) use of aspirin; Z79.899 Other long term (current) drug therapy
CPT/HCPCS: 36415; 51798; 71010; 74000; 80053; 81001; 82553; 83690; 83880; 84484; 85025; 93005; 96372; 96374; 99285; A9270; J1650; J1940; P9612; 80048; 82962; 83036; 84443; 93306; 97110-GO; 97110-GP; 97116-GP; 97163-GP; 97165-GO; 97167-GO; 99284; J7040